=== PATIENT | male | born 1945 | race Hispanic/Latino ===

== ENCOUNTER 2016-12-15 17:13 | Inpatient (IN) | payer MEDICARE ==
[2016-12-15 18:08] LABS: Basophils % (Auto) 0.7 % (0.0-1.8); Eosinophils % (Auto) 6.8 % (0.0-4.3); Hematocrit 37.9 % (35.5-45.6); Hemoglobin 12.1 gm/dl (11.8-15.2); Mean Corpuscular HGB Conc 32 % (32-34); Mean Corpuscular Hemoglobin 28 pg (28-32); Mean Corpuscular Volume 87 fl (84-94); Platelet Count 160 K/mm3 (140-440); Red Blood Count 4.38 M/mm3 (3.65-5.03); Red Cell Distribution Width 16.2 % (13.2-15.2); White Blood Count 4.1 K/mm3 (4.5-11.0)
[2016-12-15 18:18] LABS: INR 1.51 (0.87-1.13)
[2016-12-15 18:19] LABS: Partial Thromboplastin Time 34.3 Sec. (24.2-36.6)
[2016-12-15 18:28] LABS: Anion Gap 20 mmol/L; BUN/Creatinine Ratio 12.22; Blood Urea Nitrogen 11 mg/dL (9-20); Calcium 8.6 mg/dL (8.4-10.2); Carbon Dioxide 21 mmol/L (22-30); Chloride 99.8 mmol/L (98-107); Glucose 99 mg/dL (75-100); Potassium 4.3 mmol/L (3.6-5.0); Sodium 136 mmol/L (137-145)
[2016-12-15] MEDS ORDERED: LASIX IV ONE (19:22)
--- NOTE | 2016-12-15 19:29 | Emergency Department Report ---
HPI - General Chief Complaint: Dyspnea/Respdistress Time Seen by Provider: 12/15/16 19:07 - HPI HPI: Room 2 The patient is a 71-year-old male presenting with a chief complaint of bilateral lower extremity edema. The patient states of course 4 months is that worsening bilateral lower extremity edema. The patient states he started his feet then progressed to pretibial and and then the entire leg bilaterally. Patient does admit to worsening dyspnea on exertion. The patient has a history of CHF and states he's been compliant with his Lasix 20 mg daily. The patient states over the past week she has noticed increased edema of his scrotum which now makes it difficult for him to ambulate Location: [see above] Duration: Progressive over 4 months Quality: Shortness of breath Severity: Moderate Modifying factors: Exertion worsens shortness of breath Context: [see above] Mode of transportation: [not driving] ED Past Medical Hx - Past Medical History Hx Hypertension: Yes Hx Congestive Heart Failure: Yes Hx GERD: Yes Hx Asthma: Yes - Surgical History Hx Appendectomy: Yes - Family History Family history: no significant - Social History Smoking Status: Never Smoker Substance Use Type: None - Medications Home Medications: Home Medications Medication Instructions Recorded Confirmed Last Taken Type AtorvaSTATin 10 mg PO QHS 04/23/15 12/15/16 04/28/15 History Lisinopril 10 mg PO DAILY 04/23/15 12/15/16 04/28/15 History Losartan 50 mg PO DAILY 04/23/15 12/15/16 04/29/15 History Xanax TAB 0.5 mg PO QHS 04/23/15 12/15/16 04/28/15 History Zoloft 100 mg PO DAILY 04/23/15 12/15/16 04/28/15 History Acyclovir [Zovirax Tab] 400 mg PO BID 12/15/16 12/15/16 Unknown History Furosemide [Lasix TAB] 20 mg PO QDAY PRN 12/15/16 12/15/16 Unknown History Lansoprazole [Prevacid] 30 mg PO QDAY 12/15/16 12/15/16 Unknown History ED Review of Systems ROS: Stated complaint: TESTICAL SWELLING Other details as noted in HPI Comment: All other systems reviewed and negative Constitutional: denies: chills, fever Eyes: denies: eye pain, eye discharge, vision change ENT: denies: ear pain, throat pain Respiratory: shortness of breath, SOB with exertion Cardiovascular: dyspnea on exertion. denies: chest pain, palpitations Endocrine: no symptoms reported Gastrointestinal: denies: abdominal pain, nausea, diarrhea Genitourinary: other (scrotal edema) Musculoskeletal: denies: back pain, joint swelling, arthralgia Skin: denies: rash, lesions Neurological: denies: headache, weakness, paresthesias Psychiatric: denies: anxiety, depression Hematological/Lymphatic: denies: easy bleeding, easy bruising Physical Exam - Physical Exam Vital Signs: Vital Signs 12/15/16 12/15/16 12/15/16 17:43 17:56 18:08 Temperature 98.3 F Pulse Rate 58 L 52 L Respiratory 22 16 14 Rate Blood Pressure 132/73 O2 Sat by Pulse 97 97 99 Oximetry 12/15/16 18:10 Temperature Pulse Rate 48 L Respiratory 13 Rate Blood Pressure 137/77 O2 Sat by Pulse 98 Oximetry Physical Exam: GENERAL: The patient is well-developed well-nourished male lying on stretcher not appear to be in acute distress. [] HEENT: Normocephalic. Atraumatic. Extraocular motions are intact. Patient has moist mucous membranes. NECK: Supple. No meningitic signs are noted. There is no adenopathy noted. CHEST/LUNGS: Clear to auscultation. There is no respiratory distress noted. HEART/CARDIOVASCULAR: Regular. There is no tachycardia. There is no gallop rub or murmur. ABDOMEN: Abdomen is soft, nontender. Patient has normal bowel sounds. There is no abdominal distention. SKIN: There is no rash. There is 2-3+ bilateral lower extremity pitting edema. There is large scrotal edema. Scrotum is approximately cantaloupe sized. There is no diaphoresis. NEURO: The patient is awake, alert, and oriented. The patient is cooperative. The patient has normal speech MUSCULOSKELETAL: There is no evidence of acute injury. ED Course Vital Signs 12/15/16 12/15/16 12/15/16 17:43 17:56 18:08 Temperature 98.3 F Pulse Rate 58 L 52 L Respiratory 22 16 14 Rate Blood Pressure 132/73 O2 Sat by Pulse 97 97 99 Oximetry 12/15/16 18:10 Temperature Pulse Rate 48 L Respiratory 13 Rate Blood Pressure 137/77 O2 Sat by Pulse 98 Oximetry ED Medical Decision Making - Lab Data Result diagrams: 12/15/16 17:54 12/15/16 17:54 Laboratory Tests 12/15/16 12/15/16 12/15/16 17:54 17:54 17:54 WBC 4.1 L RBC 4.38 Hgb 12.1 Hct 37.9 MCV 87 MCH 28 MCHC 32 RDW 16.2 H Plt Count 160 Lymph % (Auto) 22.2 [place] % (Auto) 7.8 H Eos % (Auto) 6.8 H Baso % (Auto) 0.7 Lymph # 0.9 L [place] # 0.3 Eos # 0.3 Baso # 0.0 Seg Neutrophils % 62.5 Seg Neutrophils # 2.6 PT 18.2 H INR 1.51 H APTT 34.3 Sodium 136 L Potassium 4.3 Chloride 99.8 Carbon Dioxide 21 L Anion Gap 20 BUN 11 Creatinine 0.9 Estimated GFR > 60 BUN/Creatinine Ratio 12.22 Glucose 99 Calcium 8.6 Troponin T < 0.010 NT-Pro-B Natriuret Pep 7830 H - EKG Data -: EKG Interpreted by Me Rate: bradycardia (46 bpm) - EKG Data When compared to previous EKG there are: previous EKG unavailable Interpretation: other (intrafibrillation a rate of 46 bpm. T-wave inversion in leads aVL. Biphasic T waves in leads V4, V6) - Radiology Data Radiology results: image reviewed (chest x-ray) interpreted by me: Chest x-ray-no focal infiltrates, no pneumothorax - Differential Diagnosis CHF exacerbation, anasarca Critical care attestation.: If time is entered above; I have spent that time in minutes in the direct care of this critically ill patient, excluding procedure time. ED Disposition Clinical Impression: CHF exacerbation, Peripheral edema, Scrotal edema Disposition: OP ADMITTED IP TO THIS HOSP Is pt being admited?: Yes Does the pt Need Aspirin: Yes Condition: Fair Referrals: PRIMARY CARE, [Primary Care Provider] - 3-5 Days Time of Disposition: 19:33 (hospitalist Dr. Jayla pantoja)
[2016-12-15] MEDS ORDERED: ASPIRIN PO ONE (19:33)
[2016-12-15] MEDS ORDERED: TYLENOL PO PRN (22:01)
[2016-12-15] MEDS ORDERED: ZOFRAN IV PRN (22:01)
[2016-12-15] MEDS ORDERED: MILK OF MAGNESIA PO PRN (22:01)
[2016-12-15] MEDS ORDERED: DULCOLAX PR PRN (22:01)
--- NOTE | 2016-12-15 22:05 | History and Physical Report ---
History of Present Illness Date of examination: 12/15/16 History of present illness: 71-year-old man with a history of CHF, GERD, asthma comes emergency room with edema for 3 months which has progressively gotten worse. The swelling is now up to his groin. He complains of shortness of breath, dyspnea on exertion , no PND or orthopnea Patient denies chest pain, palpitation, cough, abdominal pain, hematochezia, dysuria, frequency, focal weakness, dysarthria, fever chills, polydipsia polyuria, hot or cold intolerance, easy bruisability, or rash or bleeding from mucosal membrane, rhinorrhea, epistaxis, earache, tinnitus, blurry vision, eye discharge, anxiety, depression. Other review of systems negative PAST SURGICAL HISTORY: Appendectomy SOCIAL HISTORY: Denies alcohol, tobacco, drugs FAMILY HISTORY: Hypertension Medications and Allergies Allergies Allergy/AdvReac Type Severity Reaction Status Date / Time No Known Allergies Allergy Verified 04/23/15 15:10 Home Medications Medication Instructions Recorded Confirmed Last Taken Type ALPRAZolam [Xanax TAB] 0.5 mg PO QHS 04/23/15 12/15/16 04/28/15 History AtorvaSTATin [Lipitor] 10 mg PO QHS 04/23/15 12/15/16 04/28/15 History Lisinopril [Zestril TAB] 10 mg PO DAILY 04/23/15 12/15/16 04/28/15 History Losartan [Cozaar] 50 mg PO DAILY 04/23/15 12/15/16 04/29/15 History Sertraline [Zoloft] 100 mg PO DAILY 04/23/15 12/15/16 04/28/15 History Acyclovir [Zovirax Tab] 400 mg PO BID 12/15/16 12/15/16 Unknown History Furosemide [Lasix TAB] 20 mg PO QDAY PRN 12/15/16 12/15/16 Unknown History Lansoprazole [Prevacid] 30 mg PO QDAY 12/15/16 12/15/16 Unknown History Exam - Physical Exam Narrative exam: Gen. appearance: Patient lying in bed, no apparent distress HEENT: Normocephalic, atraumatic, pupils equally round and reactive to light, extraocular movement intact, and no sclericterus,. No JVD or thyromegaly or nodule,neck supple, no carotid bruit ,mucous membranes moist, no exudate or erythema Heart: S1, S2, regular rate and rhythm Lungs: Crackles bilaterally, breathing comfortable Abdomen: Positive bowel sounds, nontender, nondistended, no organomegaly Extremity: Anasarca, no cyanosis, clubbing Skin: No rash, nodules, warm, dry Neuro: Oriented 3, cranial nerves II-12 intact, speech is fluent, motor and sensory intact - Constitutional Vitals: Temp Pulse Resp BP Pulse Ox 98.3 F 48 L 13 137/77 98 12/15/16 17:43 12/15/16 18:10 12/15/16 18:10 12/15/16 18:10 12/15/16 18:10 Results - Labs CBC & Chem 7: 12/16/16 08:37 12/16/16 08:37 Labs: Abnormal lab results 12/15/16 12/15/16 12/15/16 Range/Units 17:54 17:54 17:54 WBC 4.1 L (4.5-11.0) K/mm3 RDW 16.2 H (13.2-15.2) % [place] % (Auto) 7.8 H (0.0-7.3) % Eos % (Auto) 6.8 H (0.0-4.3) % Lymph # 0.9 L (1.2-5.4) K/mm3 PT 18.2 H (12.2-14.9) Sec. INR 1.51 H (0.87-1.13) Sodium 136 L (137-145) mmol/L Carbon Dioxide 21 L (22-30) mmol/L NT-Pro-B Natriuret Pep 7830 H (0-900) pg/mL - Imaging and Cardiology EKG: image reviewed Chest x-ray: image reviewed Assessment and Plan CHF exacerbation, acute on chronic probably diastolic GERD Asthma Admit to medicine Diuresed with IV Lasix Monitor I's and O's, daily weights Check cardiac enzymes, echo, consult cardiology Start Beta nilson, TAMIR inhibitor, aspirin Start outpatient medications Start DVT prophylaxis
[2016-12-16] MEDS: LASIX IV SCH ×2 (08:09→17:59)
--- NOTE | 2016-12-16 09:58 | Progress Note ---
Assessment and Plan Assessment and plan: Acute CHF exacerbation. Await echocardiogram to determine systolic versus diastolic. Cardiology consultation pending. Continue CHF pathway. We will monitor I&O's, daily weights and check cardiac isoenzymes. Patient with elevated BNP of greater than 7000.. Continue Lasix, beta nilson and Zestril. Asthma. Stable GERD. Continue Protonix. History Interval history: 71-year-old man with a history of CHF, GERD, asthma comes emergency room with edema for 3 months which has progressively gotten worse. Hospitalist Physical - Constitutional Vitals: Temp Pulse Resp BP Pulse Ox 97.7 F 48 L 18 145/77 98 12/16/16 07:25 12/16/16 07:25 12/16/16 07:25 12/16/16 07:25 12/16/16 07:25 General appearance: Present: no acute distress, well-nourished - EENT Eyes: Present: PERRL, EOM intact ENT: hearing intact, clear oral mucosa, dentition normal - Neck Neck: Present: supple, normal ROM - Respiratory Respiratory effort: normal Respiratory: bilateral: diminished, rales - Cardiovascular Rhythm: regular Heart Sounds: Present: S1 & S2. Absent: gallop, rub - Extremities Extremities: no ischemia, Full ROM Extremity abnormal: edema (3+) - Abdominal General gastrointestinal: soft, non-tender, non-distended, normal bowel sounds - Integumentary Integumentary: Present: clear, warm, dry - Neurologic Neurologic: CNII-XII intact, moves all extremities Results - Labs CBC & Chem 7: 12/15/16 17:54 12/15/16 17:54 Labs: Laboratory Last Values WBC 4.1 K/mm3 (4.5-11.0) L 12/15/16 17:54 RBC 4.38 M/mm3 (3.65-5.03) 12/15/16 17:54 Hgb 12.1 gm/dl (11.8-15.2) 12/15/16 17:54 Hct 37.9 % (35.5-45.6) 12/15/16 17:54 MCV 87 fl (84-94) 12/15/16 17:54 MCH 28 pg (28-32) 12/15/16 17:54 MCHC 32 % (32-34) 12/15/16 17:54 RDW 16.2 % (13.2-15.2) H 12/15/16 17:54 Plt Count 160 K/mm3 (140-440) 12/15/16 17:54 Lymph % (Auto) 22.2 % (13.4-35.0) 12/15/16 17:54 [place] % (Auto) 7.8 % (0.0-7.3) H 12/15/16 17:54 Eos % (Auto) 6.8 % (0.0-4.3) H 12/15/16 17:54 Baso % (Auto) 0.7 % (0.0-1.8) 12/15/16 17:54 Lymph # 0.9 K/mm3 (1.2-5.4) L 12/15/16 17:54 [place] # 0.3 K/mm3 (0.0-0.8) 12/15/16 17:54 Eos # 0.3 K/mm3 (0.0-0.4) 12/15/16 17:54 Baso # 0.0 K/mm3 (0.0-0.1) 12/15/16 17:54 Seg Neutrophils % 62.5 % (40.0-70.0) 12/15/16 17:54 Seg Neutrophils # 2.6 K/mm3 (1.8-7.7) 12/15/16 17:54 PT 18.2 Sec. (12.2-14.9) H 12/15/16 17:54 INR 1.51 (0.87-1.13) H 12/15/16 17:54 APTT 34.3 Sec. (24.2-36.6) 12/15/16 17:54 Sodium 136 mmol/L (137-145) L 12/15/16 17:54 Potassium 4.3 mmol/L (3.6-5.0) 12/15/16 17:54 Chloride 99.8 mmol/L (98-107) 12/15/16 17:54 Carbon Dioxide 21 mmol/L (22-30) L 12/15/16 17:54 Anion Gap 20 mmol/L 12/15/16 17:54 BUN 11 mg/dL (9-20) 12/15/16 17:54 Creatinine 0.9 mg/dL (0.8-1.5) 12/15/16 17:54 Estimated GFR > 60 ml/min 12/15/16 17:54 BUN/Creatinine Ratio 12.22 % 12/15/16 17:54 Glucose 99 mg/dL (75-100) 12/15/16 17:54 Calcium 8.6 mg/dL (8.4-10.2) 12/15/16 17:54 Troponin T < 0.010 ng/mL (0.00-0.029) 12/15/16 17:54 NT-Pro-B Natriuret Pep 7830 pg/mL (0-900) H 12/15/16 17:54
[2016-12-16] MEDS ORDERED: NON-FORMULARY (Acyclovir [Zovirax Tab] 400 MG) PO SCH (10:00)
[2016-12-16] MEDS ORDERED: LOVENOX SUB-Q SCH (10:00)
[2016-12-16] MEDS ORDERED: NON-FORMULARY (Lansoprazole [Prevacid] 30 MG) PO SCH (10:00)
[2016-12-16] MEDS ORDERED: ZESTRIL PO SCH (10:00)
--- NOTE | 2016-12-16 10:00 | XRay Report ---
PORTABLE CHEST INDICATION: Shortness of breath. COMPARISON: None similar at this institution. FINDINGS: Portable, frontal chest radiographs, 2 images, suggest top normal heart size. Aortic knob calcifications. Slight mid to lower lung atelectasis, left more than right. Intact bones. EKG leads. CONCLUSION: No significant acute chest process, as described. Thank you for the opportunity to participate in this patient's care.
[2016-12-16] MEDS: BABY ASPIRIN PO SCH (10:08)
[2016-12-16] MEDS: ZESTRIL PO SCH (10:08)
[2016-12-16] MEDS: LOPRESSOR PO SCH ×2 (10:09→22:33)
[2016-12-16] MEDS: ZOLOFT PO SCH (10:09)
[2016-12-16] MEDS: PROTONIX PO SCH (10:09)
[2016-12-16] MEDS: LOVENOX SUB-Q SCH (10:10)
[2016-12-16] MEDS: ZOVIRAX PO SCH ×2 (10:23→22:33)
[2016-12-16 10:31] LABS: Basophils % (Auto) 0.6 % (0.0-1.8); Eosinophils % (Auto) 7.6 % (0.0-4.3); Hematocrit 38.1 % (35.5-45.6); Hemoglobin 12.2 gm/dl (11.8-15.2); Mean Corpuscular HGB Conc 32 % (32-34); Mean Corpuscular Hemoglobin 28 pg (28-32); Mean Corpuscular Volume 88 fl (84-94); Platelet Count 163 K/mm3 (140-440); Red Blood Count 4.34 M/mm3 (3.65-5.03); Red Cell Distribution Width 16.3 % (13.2-15.2); White Blood Count 4.5 K/mm3 (4.5-11.0)
[2016-12-16 10:59] LABS: Anion Gap 18 mmol/L; BUN/Creatinine Ratio 11.11; Blood Urea Nitrogen 10 mg/dL (9-20); Calcium 8.9 mg/dL (8.4-10.2); Carbon Dioxide 26 mmol/L (22-30); Chloride 99.5 mmol/L (98-107); Glucose 91 mg/dL (75-100); Potassium 3.7 mmol/L (3.6-5.0); Sodium 140 mmol/L (137-145)
--- NOTE | 2016-12-16 11:28 | Admit Criteria Form ---
Admission Criteria Documentation: HEART FAILURE: COMMON COMPLICATIONS Clinical Indications for Inpatient Care (Place 'X' for any and all applicable criteria): Ongoing inpatient care may be indicated for heart failure with ANY ONE of the following (1)(2)(3)(4)(5): [ ]I. Ongoing need for care for primary condition requiring frequent therapy adjustments because of changes in cardiac function (eg, drug dosage changes for drugs that are renally metabolized) [ ]II. New-onset heart failure [ ]III. Heart failure with decreased urine output not responsive to attempts to optimize volume status [ ]IV. Acute cardiac ischemia causing or associated with failure [X]V. Complications of heart failure, including ANY ONE of the following: [ ]a) Pericardial effusion [ ]b) Symptomatic pleural effusion [ ]c) O2 saturation <90% or PO2 < 60 mm Hg (8.0 kPa) on room air or require baseline supplemental O2 [ ]d) Tachypnea [ ]e) Dyspnea [ ]f) Syncope [ ]g) Change in mental status [ ]h) Acute renal insufficiency that is severe (reduction of more than 50% in estimated glomerular filtration rate from baseline) or progressive reduction of more than 25% in estimated glomerular filtration rate from baseline, with creatinine continuing to rise) [ ]i) Hemodynamic instability [X]j) Anasarca [ ]k) Clinically significant metabolic abnormalities due to heart failure (eg, new-onset metabolic acidosis) Extended stay beyond goal length of stay for primary condition may be needed until ALL of the following are present(1)(3): [ ]a) Stable and effective diuretic regimen established (or patient on stable dialysis regimen if in chronic renal failure) [ ]b) Breathing comfortably at rest [ ]c) Saturation of arterial oxygen greater than 90% or at acceptable baseline [ ]d) Pulmonary edema absent or improved [ ]e) Hemodynamic stability [ ]f) Volume status acceptable on oral medication [ ]g) Peripheral or sacral edema absent or improved [ ]h) Renal function stable and manageable at a lower level of care [ ]i) Complications (eg, pleural effusion) resolved or manageable at a lower level of care [ ]j) Patient or caregiver has received written discharge instructions or educational material addressing activity level, diet, discharge medications, follow-up appointment, weight monitoring, and what to do if symptoms worsen The original [facility] content created by [employer] has been revised. The portions of the content which have been revised are identified through the use of italic text or in bold, and [facility] has neither reviewed nor approved the modified material.All other unmodified content is copyright [facility]. Please see references footnoted in the original [facility] edition 2016 Admission Criteria Met: Yes
--- NOTE | 2016-12-16 12:03 | Event Note ---
Date: 12/16/16 Cardio note dictated CHF A fib HTN Edema will follow Thank you Dr Hussein
[2016-12-16] MEDS: MORPHINE IV PRN (16:12)
[2016-12-16] MEDS: XANAX PO SCH (22:33)
--- NOTE | 2016-12-17 02:26 | Consultation ---
HISTORY OF PRESENT ILLNESS: The patient is a 71-year-old gentleman who comes in with history of worsening edema within the last 3 months that has progressively gotten worse and he came to the Emergency Room. The patient is diagnosed to have congestive heart failure and has been treated with diuretics. The patient had some improvement in the dyspnea as well as the edema. The patient had no chest pain. Denies prior myocardial infarction, but he did have a previous cerebrovascular accident. The patient is known to have hypertension, but no history of diabetes or hyperlipidemia. REVIEW OF SYSTEMS: HEENT: No symptoms. ENDOCRINE: No history of diabetes, but 9 to 10 years ago, he was diagnosed to have type 2 diabetes. After weight loss, this has resolved. GENITOURINARY: No symptoms currently. CENTRAL NERVOUS SYSTEM: No symptoms. PERSONAL HISTORY: Nonsmoker, nonalcoholic. PAST MEDICAL HISTORY: The patient is known to have hypertension and possible borderline diabetes. PHYSICAL EXAMINATION: GENERAL: Elderly gentleman in no acute distress, appears to be older than stated age. HEENT: Unremarkable. NECK: Supple. No thyromegaly. Both carotids are palpable and equal. Neck veins are flat. CHEST: Symmetrical. LUNGS: Clear. CARDIOVASCULAR: S1 and S2 are heard well. Rhythm is noted to be irregular. ABDOMEN: Soft and nontender. EXTREMITIES: Bilateral edema is present up to the thighs. IMAGING DATA: EKG, atrial fibrillation with satisfactory ventricular response. Chest x-ray is stable. LABORATORY DATA: Hemoglobin 12.2, hematocrit 38.1. INR 1.51. Sodium 140, potassium 3.7, BUN 10, creatinine 0.9, troponin negative. BNP 7830. IMPRESSION: 1. Congestive heart failure. 2. Longstanding history of hypertension. 3. History of type 2 diabetes. 4. History of cerebrovascular accident in . 5. History of lymphoma seen in the past by Dr. Chris. 6. Atrial fibrillation. The patient is seen for cardiac evaluation. So far, he has responded to the diuretics and he is doing better. PLAN: At this time, is to continue current management. We will review the echo once it is done. The patient will be followed closely. Multiple family members are present in the room and discussed with them about the plans. Thank you, Dr. Garcia, for allowing me to participate in the care of this gentleman. JOB# [id number] ANNE/NTS
[2016-12-17] MEDS: LASIX IV SCH ×2 (06:22→18:41)
--- NOTE | 2016-12-17 11:03 | Progress Note ---
Assessment and Plan Assessment and plan: Acute systolic CHF exacerbation. Echocardiogram appears to have biventricular failure. Await echocardiogram for breathing. Cardiology following. Continue CHF pathway. We will monitor I&O's, daily weights and check cardiac isoenzymes. Patient with elevated BNP of greater than 7000 on admission. Continue Lasix, beta nilson and Zestril. Asthma. Stable GERD. Continue Protonix. Hypertension. Continue antihypertensives medications. Atrial fibrillation. Rate controlled. History Interval history: 71-year-old man with a history of CHF, GERD, asthma comes emergency room with edema for 3 months which has progressively gotten worse. Hospitalist Physical - Constitutional Vitals: Temp Pulse Resp BP Pulse Ox 97.9 F 47 L 18 116/75 100 12/17/16 09:46 12/17/16 09:46 12/17/16 09:46 12/17/16 09:46 12/17/16 09:46 General appearance: Present: no acute distress, well-nourished - EENT Eyes: Present: PERRL, EOM intact ENT: hearing intact, clear oral mucosa, dentition normal - Neck Neck: Present: supple, normal ROM - Respiratory Respiratory effort: normal Respiratory: bilateral: CTA - Cardiovascular Rhythm: regular Heart Sounds: Present: S1 & S2. Absent: gallop, rub - Extremities Extremities: no ischemia, No edema, Full ROM - Abdominal General gastrointestinal: soft, non-tender, non-distended, normal bowel sounds - Integumentary Integumentary: Present: clear, warm, dry - Neurologic Neurologic: CNII-XII intact, moves all extremities Results - Labs CBC & Chem 7: 12/16/16 08:37 12/16/16 08:37 Labs: Laboratory Last Values WBC 4.5 K/mm3 (4.5-11.0) 12/16/16 08:37 RBC 4.34 M/mm3 (3.65-5.03) 12/16/16 08:37 Hgb 12.2 gm/dl (11.8-15.2) 12/16/16 08:37 Hct 38.1 % (35.5-45.6) 12/16/16 08:37 MCV 88 fl (84-94) 12/16/16 08:37 MCH 28 pg (28-32) 12/16/16 08:37 MCHC 32 % (32-34) 12/16/16 08:37 RDW 16.3 % (13.2-15.2) H 12/16/16 08:37 Plt Count 163 K/mm3 (140-440) 12/16/16 08:37 Lymph % (Auto) 31.9 % (13.4-35.0) 12/16/16 08:37 [place] % (Auto) 8.4 % (0.0-7.3) H 12/16/16 08:37 Eos % (Auto) 7.6 % (0.0-4.3) H 12/16/16 08:37 Baso % (Auto) 0.6 % (0.0-1.8) 12/16/16 08:37 Lymph # 1.4 K/mm3 (1.2-5.4) 12/16/16 08:37 [place] # 0.4 K/mm3 (0.0-0.8) 12/16/16 08:37 Eos # 0.3 K/mm3 (0.0-0.4) 12/16/16 08:37 Baso # 0.0 K/mm3 (0.0-0.1) 12/16/16 08:37 Seg Neutrophils % 51.5 % (40.0-70.0) 12/16/16 08:37 Seg Neutrophils # 2.3 K/mm3 (1.8-7.7) 12/16/16 08:37 PT 18.2 Sec. (12.2-14.9) H 12/15/16 17:54 INR 1.51 (0.87-1.13) H 12/15/16 17:54 APTT 34.3 Sec. (24.2-36.6) 12/15/16 17:54 Sodium 140 mmol/L (137-145) 12/16/16 08:37 Potassium 3.7 mmol/L (3.6-5.0) 12/16/16 08:37 Chloride 99.5 mmol/L (98-107) 12/16/16 08:37 Carbon Dioxide 26 mmol/L (22-30) 12/16/16 08:37 Anion Gap 18 mmol/L 12/16/16 08:37 BUN 10 mg/dL (9-20) 12/16/16 08:37 Creatinine 0.9 mg/dL (0.8-1.5) 12/16/16 08:37 Estimated GFR > 60 ml/min 12/16/16 08:37 BUN/Creatinine Ratio 11.11 % 12/16/16 08:37 Glucose 91 mg/dL (75-100) 12/16/16 08:37 POC Glucose 142 (70-105) H 12/16/16 21:36 Calcium 8.9 mg/dL (8.4-10.2) 12/16/16 08:37 Troponin T < 0.010 ng/mL (0.00-0.029) 12/15/16 17:54 NT-Pro-B Natriuret Pep 7830 pg/mL (0-900) H 12/15/16 17:54
[2016-12-17] MEDS: LOPRESSOR PO SCH (11:32)
[2016-12-17] MEDS: ZESTRIL PO SCH ×2 (11:32→11:44)
--- NOTE | 2016-12-17 11:33 | Progress Note ---
Assessment and Plan Assessment: Acute bi-ventricular heart failure CMP Chronic atrial fibrillation - currently with SVR. HTN DM h/o CVA h/o lymphoma Plan: Echo reviewed - mild LVH, EF 35-40%, RV mildly dilated, RA moderately dilated, mild MR, mild to moderate TR, RVSP 40mmHg, LA mildly dilated. Continue diuresis with IV lasix. Consider conversion to PO in AM. Hold BB in setting of AFib with SVR. Indications, potential risks, and benefits of anticoagulation in regards to atrial fibrillation reviewed with pt and pt's family. Pt was prescribed Pradaxa in the past but took himself off of it because it was too expensive with his insurance at the time. However, his insurance has changed and he and his family feel that Pradaxa will now be affordable for them. Will resume Pradaxa, 150mg BID. Plan for ischemic evaluation for further evaluation of CMP etiology once medically stabilized - can be done as OP. The patient has been seen in conjunction with Dr. LOUIS Hussein who agrees with the assessment and plan of care. Subjective Date of service: 12/17/16 Principal diagnosis: HF Interval history: Pt resting in bed, states BLE edema and SOB are improving. In AFib on tele with SVR, HR 30s - 40s, BPs stable, pt asymptomatic. Family at bedside. Objective Last Vital Signs Temp 97.9 F 12/17/16 09:46 Pulse 47 L 12/17/16 09:46 Resp 18 12/17/16 09:46 BP 116/75 12/17/16 09:46 Pulse Ox 100 12/17/16 09:46 - Physical Examination General: No Apparent Distress HEENT: Positive: PERRL, Normocephaly, Mucus Membranes Moist Neck: Positive: neck supple, trachea midline Cardiac: Positive: irregularly irregular, S1/S2 Lungs: Positive: clear to auscultation, Decreased Breath Sounds Neuro: Positive: Grossly Intact, Cranial Nerve 2-12 Intact Abdomen: Positive: Unremarkable, Soft, Active Bowel Sounds. Negative: Tender Skin: Positive: Clear. Negative: Rash, Wound Musculoskeletal: No Pain, Normal Range of Motion Extremities: Present: edema, +2 Edema (BLE ) - Imaging and Cardiology EKG: report reviewed, image reviewed Echo: report reviewed - Telemetry EKG Rhythm: Atrial Fibrillation
[2016-12-17] MEDS: ZOLOFT PO SCH (11:41)
[2016-12-17] MEDS: BABY ASPIRIN PO SCH (11:42)
[2016-12-17] MEDS: ZOVIRAX PO SCH ×2 (11:42→22:46)
[2016-12-17] MEDS: PROTONIX PO SCH (11:42)
[2016-12-17] MEDS: LOVENOX SUB-Q SCH (11:43)
[2016-12-17] MEDS: PRADAXA PO SCH ×2 (15:37→22:46)
[2016-12-17] MEDS: MORPHINE IV PRN (18:52)
[2016-12-17] MEDS: XANAX PO SCH (22:46)
[2016-12-18] MEDS: LASIX IV SCH (06:39)
[2016-12-18 07:52] LABS: Basophils % (Auto) 0.9 % (0.0-1.8); Eosinophils % (Auto) 9.9 % (0.0-4.3); Hematocrit 38.7 % (35.5-45.6); Hemoglobin 12.6 gm/dl (11.8-15.2); Mean Corpuscular HGB Conc 33 % (32-34); Mean Corpuscular Hemoglobin 28 pg (28-32); Mean Corpuscular Volume 87 fl (84-94); Platelet Count 176 K/mm3 (140-440); Red Blood Count 4.47 M/mm3 (3.65-5.03); Red Cell Distribution Width 15.7 % (13.2-15.2); White Blood Count 4.1 K/mm3 (4.5-11.0)
[2016-12-18 08:04] LABS: Carbon Dioxide 34 mmol/L (22-30); Chloride 95.9 mmol/L (98-107); Glucose 108 mg/dL (75-100); Potassium 3.9 mmol/L (3.6-5.0); Sodium 140 mmol/L (137-145)
[2016-12-18 08:08] LABS: Anion Gap 14 mmol/L
[2016-12-18 08:48] LABS: Blood Urea Nitrogen 13 mg/dL (9-20); Calcium 8.7 mg/dL (8.4-10.2)
--- NOTE | 2016-12-18 09:46 | Progress Note ---
Assessment and Plan Assessment: Acute bi-ventricular heart failure - nearing/at euvolemia CMP Chronic atrial fibrillation with SVR - pt asympotomatic, BPs stable; on Pradaxa. HTN DM h/o CVA h/o lymphoma Plan: Convert IV lasix to PO, 40mg daily. Cont to BB in setting of AFib with SVR. Obtain thyroid panel. Encourage ambulation today and cont telemetry with possible d/c home this afternoon if HR is maintained in 40s - 50s. Consider EP consultation if HR continues to drop below 40bpm. Plan for ischemic evaluation for further evaluation of CMP etiology once medically stabilized - can be done as OP. Follow up in our [place] office with Caitie Green NP, on 12/23/2016 @ 1:30PM. The patient has been seen in conjunction with Dr. LOUIS Hussein who agrees with the assessment and plan of care. Subjective Date of service: 12/18/16 Principal diagnosis: HF Interval history: Pt resting in bed, BLE nearly resolved. In AFib on tele with SVR, HR 30s - 50s, lowest HR overnight was 39bpm; BPs stable, pt asymptomatic. Family at bedside. Objective Last Vital Signs Temp 98.1 F 12/18/16 08:40 Pulse 42 L 12/18/16 08:40 Resp 18 12/18/16 08:40 BP 125/68 12/18/16 08:40 Pulse Ox 96 12/18/16 08:40 - Physical Examination General: No Apparent Distress HEENT: Positive: PERRL, Normocephaly, Mucus Membranes Moist Neck: Positive: neck supple, trachea midline Cardiac: Positive: irregularly irregular, S1/S2 Lungs: Positive: clear to auscultation Neuro: Positive: Grossly Intact, Cranial Nerve 2-12 Intact Abdomen: Positive: Unremarkable, Soft, Active Bowel Sounds. Negative: Tender Skin: Positive: Clear. Negative: Rash, Wound Musculoskeletal: No Pain, Normal Range of Motion Extremities: Present: edema, +2 Edema (BLE ) - Labs and Meds CBC 12/18/16 Range/Units 06:56 WBC 4.1 L (4.5-11.0) K/mm3 RBC 4.47 (3.65-5.03) M/mm3 Hgb 12.6 (11.8-15.2) gm/dl Hct 38.7 (35.5-45.6) % Plt Count 176 (140-440) K/mm3 Lymph # 1.3 (1.2-5.4) K/mm3 [place] # 0.3 (0.0-0.8) K/mm3 Eos # 0.4 (0.0-0.4) K/mm3 Baso # 0.0 (0.0-0.1) K/mm3 Comprehensive Metabolic Panel 12/18/16 Range/Units 06:56 Sodium 140 (137-145) mmol/L Potassium 3.9 (3.6-5.0) mmol/L Chloride 95.9 L (98-107) mmol/L Carbon Dioxide 34 H D (22-30) mmol/L BUN 13 (9-20) mg/dL Creatinine 1.0 (0.8-1.5) mg/dL Glucose 108 H (75-100) mg/dL Calcium 8.7 (8.4-10.2) mg/dL - Imaging and Cardiology EKG: report reviewed, image reviewed Echo: report reviewed
[2016-12-18] MEDS: PRADAXA PO SCH ×2 (10:21→21:45)
[2016-12-18] MEDS: ZESTRIL PO SCH (10:22)
[2016-12-18] MEDS: ZOLOFT PO SCH (10:22)
[2016-12-18] MEDS: BABY ASPIRIN PO SCH (10:22)
[2016-12-18] MEDS: ZOVIRAX PO SCH ×2 (10:22→21:44)
[2016-12-18] MEDS: PROTONIX PO SCH (10:23)
--- NOTE | 2016-12-18 14:35 | Progress Note ---
Subjective Date of service: 12/18/16 Principal diagnosis: HF Interval history: Assessment and plan: Acute bi-ventricular heart failure - nearing/at euvolemia Cardiology note reviewed Patient complains of shortness of breath with minimal exertion, appears to be chronic His heart rate is in the low 40s I would requested physical therapy evaluation for his deconditioning Most likely will try to discharge the patient tomorrow his heart rate does not drop below 40 CMP: Echo results reviewed Chronic atrial fibrillation with SVR - pt asympotomatic, BPs stable; on Pradaxa HTN: Fair GERD: Continue PPI Chronic cough: Patient apparently has been having chronic cough for a long time I have reviewed his home medications. He has bottles both for lisinopril 10 mg and losartan 50 mg and apparently is taking both of them Discussed with him the probable cause of cough secondary to TAMIR inhibitor. He voiced understanding and we'll discontinue it Bradycardia: Cardiology note reviewed. He is asymptomatic. Outpatient cardiology follow-up with EP Patient is alert and oriented He says he has not been taking medications for almost 2 months as he was unable to afford the co-pay of about $200 every month He has chronic shortness of breath on mild exertion but denies any shortness of breath at rest. Denies any paroxysmal nocturnal dyspnea. Overall he feels better. Possible discharge tomorrow Objective - Constitutional Vitals: Vital Signs - 12hr 12/18/16 12/18/16 12/18/16 04:59 08:40 12:35 Temperature 97.6 F 98.1 F 98.3 F Pulse Rate [ 42 L Apical] Pulse Rate [ 42 L 44 L Left Radial] Respiratory 18 18 18 Rate Blood Pressure 121/74 125/68 128/74 [Left Arm] O2 Sat by Pulse 93 96 96 Oximetry - Labs CBC & Chem 7: 12/18/16 06:56 12/18/16 06:56 Labs: Abnormal lab results 12/18/16 12/18/16 12/18/16 Range/Units 06:56 06:56 10:44 WBC 4.1 L (4.5-11.0) K/mm3 RDW 15.7 H (13.2-15.2) % [place] % (Auto) 7.8 H (0.0-7.3) % Eos % (Auto) 9.9 H (0.0-4.3) % Chloride 95.9 L (98-107) mmol/L Carbon Dioxide 34 H D (22-30) mmol/L Glucose 108 H (75-100) mg/dL TSH (0.270-4.200) mlU/mL Free T4 0.74 L (0.76-1.46) ng/dL 12/18/16 Range/Units 10:44 WBC (4.5-11.0) K/mm3 RDW (13.2-15.2) % [place] % (Auto) (0.0-7.3) % Eos % (Auto) (0.0-4.3) % Chloride (98-107) mmol/L Carbon Dioxide (22-30) mmol/L Glucose (75-100) mg/dL TSH 4.630 H (0.270-4.200) mlU/mL Free T4 (0.76-1.46) ng/dL
--- NOTE | 2016-12-18 16:28 | Event Note ---
Date: 12/18/16 Patient remains in atrial fibrillation with HR in the 40s, patient hemodynamically stable and asymptomatic. Pt may discharge home from cardiology standpoint. Consider for EP consultation as KARMEN. Macy ASIF NP / DR. LOUIS BERNARDO
[2016-12-18] MEDS: XANAX PO SCH (21:45)
[2016-12-19 06:13] LABS: Basophils % (Auto) 0.8 % (0.0-1.8); Eosinophils % (Auto) 11.7 % (0.0-4.3); Hematocrit 40.2 % (35.5-45.6); Hemoglobin 12.9 gm/dl (11.8-15.2); Mean Corpuscular HGB Conc 32 % (32-34); Mean Corpuscular Hemoglobin 28 pg (28-32); Mean Corpuscular Volume 87 fl (84-94); Platelet Count 174 K/mm3 (140-440); Red Blood Count 4.61 M/mm3 (3.65-5.03); Red Cell Distribution Width 15.9 % (13.2-15.2); White Blood Count 4.1 K/mm3 (4.5-11.0)
[2016-12-19 06:51] LABS: Blood Urea Nitrogen 14 mg/dL (9-20); Calcium 8.2 mg/dL (8.4-10.2); Carbon Dioxide 25 mmol/L (22-30); Chloride 95.5 mmol/L (98-107); Glucose 117 mg/dL (75-100); Potassium 3.8 mmol/L (3.6-5.0); Sodium 139 mmol/L (137-145)
[2016-12-19 06:54] LABS: Anion Gap 22 mmol/L
[2016-12-19] MEDS ORDERED: LASIX PO SCH (10:00)
[2016-12-19] MEDS ORDERED: COZAAR PO SCH (10:00)
[2016-12-19] MEDS: BABY ASPIRIN PO SCH (12:10)
[2016-12-19 12:11] VITALS: BP 127/86
[2016-12-19] MEDS: PROTONIX PO SCH (12:11)
[2016-12-19] MEDS: ZOLOFT PO SCH (12:11)
[2016-12-19] MEDS: PRADAXA PO SCH (12:11)
[2016-12-19] MEDS: ZOVIRAX PO SCH (12:15)
--- NOTE | 2016-12-19 13:09 | Discharge Summary ---
Providers - Providers Date of Admission: 12/15/16 22:01 Date of discharge: 12/19/16 Attending physician: AMILCAR HENDRICKS 12/18/16 14:24 Physical Therapy Evaluation and Treat [CONS] Routine Comment: Reason For Exam: weakness and deconditioning Primary care physician: DEDRA DENG Hospitalization Reason for admission: LE edema Condition: Fair Hospital course: 71-year-old man with a history of CHF, GERD and asthma who presented to the emergency room with complaints of progressively worsening lower extremity edema. Patient was seen by cardiology in consultation and underwent echocardiogram which revealed mild LVH, EF 35-40%, RV mildly dilated, RA moderately dilated, mild MR, mild to moderate TR, RVSP 40mmHg, LA mildly dilated. Patient was treated with IV Lasix and converted to by mouth medications. The patient's symptoms resolved. Indications, potential risks, and benefits of anticoagulation in regards to atrial fibrillation reviewed with pt and pt's family. Pt was prescribed Pradaxa in the past but took himself off of it because it was too expensive with his insurance at the time. However, his insurance has changed and he and his family feel that Pradaxa will now be affordable for them. Pradaxa was resumed. Cardiology felt that an ischemic evaluation to determine cardiomyopathy etiology will be done as an outpatient. Patient is felt to have received maximal hospital benefit. Patient will be discharged home. Follow-up with PCP and home health lvn as outpatient. Dedicated discharge time 32 minutes. Disposition: DISCHARGED TO HOME OR SELFCARE Time spent for discharge: 32 - Discharge Diagnoses (1) Afib Status: Acute Qualifiers: Atrial fibrillation type: A (2) CHF exacerbation Status: Acute Qualifiers: Congestive heart failure type: C (3) Peripheral edema Status: Acute (4) Scrotal edema Status: Acute Core Measure Documentation - Palliative Care Palliative Care/ Comfort Measures: Not Applicable - Core Measures Any of the following diagnoses?: none Exam - Constitutional Vitals: Temp Pulse Resp BP Pulse Ox 97.4 F L 45 L 18 127/86 96 12/19/16 07:50 12/19/16 12:09 12/19/16 07:50 12/19/16 12:09 12/19/16 07:50 General appearance: Present: no acute distress, well-nourished - EENT Eyes: Present: PERRL ENT: hearing intact, clear oral mucosa - Neck Neck: Present: supple, normal ROM - Respiratory Respiratory effort: normal Respiratory: bilateral: diminished - Cardiovascular Heart Sounds: Present: S1 & S2. Absent: rub, click - Extremities Extremities: pulses symmetrical, No edema Peripheral Pulses: within normal limits - Abdominal General gastrointestinal: Present: soft, non-tender, non-distended, normal bowel sounds Male genitourinary: Present: normal - Integumentary Integumentary: Present: clear, warm, dry - Musculoskeletal Musculoskeletal: gait normal, strength equal bilaterally - Psychiatric Psychiatric: appropriate mood/affect, intact judgment & insight - Neurologic Neurologic: CNII-XII intact, moves all extremities Plan Activity: no restrictions Weight Bearing Status: Full Weight Bearing Diet: low fat, low cholesterol, low salt, diabetic Follow up with: PRIMARY CARE, [Referring] - 3-5 Days [employer] [Advanced Practice Nurse] - 7 Days Prescriptions: AtorvaSTATin [Lipitor] 10 mg PO QHS #30 tablet Dabigatran [Pradaxa] 150 mg PO BID #60 capsule Furosemide [Lasix TAB] 40 mg PO QDAY #30 tablet Lansoprazole [Prevacid] 30 mg PO QDAY #30 tab.rap. Losartan [Cozaar] 50 mg PO QDAY #30 tablet
== END 2016-12-19 15:30 | disposition home or self-care (01) | DRG 293 ==
LOC: ED 17:13 → 4A 22:01
PROVIDERS: ADMIT Internal Medicine; ATTEND Hospitalist
DX: I11.0 Hypertensive heart disease with heart failure (principal); K21.9 Gastro-esophageal reflux disease without esophagitis; N50.89 Other specified disorders of the male genital organs; E11.9 Type 2 diabetes mellitus without complications; I50.23 Acute on chronic systolic (congestive) heart failure; I48.2 Chronic atrial fibrillation; I42.9 Cardiomyopathy, unspecified; Z82.49 Family history of ischemic heart disease and other diseases of the circulatory system; Z86.73 Personal history of transient ischemic attack (TIA), and cerebral infarction without residual deficits
CPT/HCPCS: 36415; 71010; 80048; 82962; 83880; 84439; 84443; 84484; 85025; 85610; 85730; 93306; 96374; A9270-GY; J1650; J1940; J2270

== ENCOUNTER 2017-07-15 14:08 | Inpatient (IN) | payer MEDICARE ==
[2017-07-15] MEDS ORDERED: LASIX IV ONE (15:12)
--- NOTE | 2017-07-15 15:18 | Emergency Department Report ---
ED Shortness of Breath HPI - General Chief Complaint: Dyspnea/Respdistress Stated Complaint: LEGS SWELLING Time Seen by Provider: 07/15/17 14:49 Source: patient Mode of arrival: Ambulatory Limitations: No Limitations - History of Present Illness Initial Comments: Patient is 72 years old male history of congestive heart failure with ejection fraction 35%. Presented to the ER today with a chief complaint of shortness of breath and lower extremity swelling for the last few days. Patient stated that he is to progress very frequently, and now he cannot walk a few distance before he has to sit down. Patient denied any chest pain, no nausea no vomiting. No fever. MD Complaint: shortness of breath Severity: moderate Known History Of: congestive heart failure - Related Data Home Medications Medication Instructions Recorded Confirmed Last Taken ALPRAZolam [Xanax TAB] 0.5 mg PO QHS 04/23/15 12/15/16 04/28/15 Sertraline [Zoloft] 100 mg PO DAILY 04/23/15 12/15/16 04/28/15 Acyclovir [Zovirax Tab] 400 mg PO BID 12/15/16 12/15/16 Unknown Previous Rx's Medication Instructions Recorded Last Taken Type Aspirin [Aspirin BABY CHEW TAB] 81 mg PO QDAY tab.chew 12/19/16 Unknown Rx AtorvaSTATin [Lipitor] 10 mg PO QHS #30 tablet 12/19/16 Unknown Rx Dabigatran [Pradaxa] 150 mg PO BID #60 capsule 12/19/16 Unknown Rx Furosemide [Lasix TAB] 40 mg PO QDAY #30 tablet 12/19/16 Unknown Rx Lansoprazole [Prevacid] 30 mg PO QDAY #30 tab. 12/19/16 Unknown Rx Losartan [Cozaar] 50 mg PO QDAY #30 tablet 12/19/16 Unknown Rx Allergies Allergy/AdvReac Type Severity Reaction Status Date / Time No Known Allergies Allergy Verified 04/23/15 15:10 ED Review of Systems ROS: Stated complaint: LEGS SWELLING Other details as noted in HPI Comment: All other systems reviewed and negative Constitutional: denies: chills, fever Respiratory: shortness of breath, SOB with exertion, SOB at rest. denies: cough , orthopnea, wheezing Cardiovascular: denies: chest pain, palpitations Gastrointestinal: denies: abdominal pain, nausea, vomiting, diarrhea, hematemesis, melena, hematochezia Neurological: denies: headache, weakness, numbness, paresthesias ED Past Medical Hx - Past Medical History Hx Hypertension: Yes Hx Congestive Heart Failure: Yes Hx Diabetes: No Hx GERD: Yes Hx Asthma: Yes Hx COPD: No Hx HIV: No - Surgical History Hx Appendectomy: Yes - Social History Smoking Status: Former Smoker Substance Use Type: None - Medications Home Medications: Home Medications Medication Instructions Recorded Confirmed Last Taken Type ALPRAZolam [Xanax TAB] 0.5 mg PO QHS 04/23/15 12/15/16 04/28/15 History Sertraline [Zoloft] 100 mg PO DAILY 04/23/15 12/15/16 04/28/15 History Acyclovir [Zovirax Tab] 400 mg PO BID 12/15/16 12/15/16 Unknown History Aspirin [Aspirin BABY CHEW TAB] 81 mg PO QDAY tab.chew 12/19/16 Unknown Rx AtorvaSTATin [Lipitor] 10 mg PO QHS #30 tablet 12/19/16 Unknown Rx Dabigatran [Pradaxa] 150 mg PO BID #60 capsule 12/19/16 Unknown Rx Furosemide [Lasix TAB] 40 mg PO QDAY #30 tablet 12/19/16 Unknown Rx Lansoprazole [Prevacid] 30 mg PO QDAY #30 tab.rap.dr 12/19/16 Unknown Rx Losartan [Cozaar] 50 mg PO QDAY #30 tablet 12/19/16 Unknown Rx ED Physical Exam - General Limitations: No Limitations General appearance: alert, in distress (patient slightly tachypneic) - Head Head exam: Present: atraumatic, normocephalic, normal inspection - Eye Eye exam: Present: normal appearance, PERRL - ENT ENT exam: Present: normal exam, mucous membranes moist - Neck Neck exam: Present: normal inspection, full ROM. Absent: meningismus, lymphadenopathy, thyromegaly - Respiratory Respiratory exam: Present: rales, decreased breath sounds. Absent: wheezes, rhonchi - Cardiovascular Cardiovascular Exam: Present: regular rate, normal rhythm, normal heart sounds - GI/Abdominal GI/Abdominal exam: Present: soft, normal bowel sounds. Absent: distended, tenderness, guarding, rebound, rigid, organomegaly, mass, bruit, pulsatile mass , hernia - Extremities Exam Extremities exam: Present: pedal edema (4+). Absent: calf tenderness - Back Exam Back exam: Present: normal inspection. Absent: tenderness, CVA tenderness (R), CVA tenderness (L), muscle spasm, paraspinal tenderness, vertebral tenderness - Neurological Exam Neurological exam: Present: alert, oriented X3, CN II-XII intact, normal gait. Absent: motor sensory deficit - Skin Skin exam: Present: warm, intact, normal color. Absent: cyanosis ED Course Vital Signs 07/15/17 07/15/17 14:15 17:33 Temperature 97.8 F Pulse Rate 46 L Respiratory 20 20 Rate Blood Pressure 126/78 O2 Sat by Pulse 100 98 Oximetry ED Medical Decision Making - Lab Data Result diagrams: 07/15/17 15:18 07/15/17 15:18 - EKG Data -: EKG Interpreted by Me - EKG Data Interpretation: no acute changes 07/15/17 17:57 Atrial fibrillation - Medical Decision Making Discussed with Dr. Ch, I presented the patient to him, he agreed to admit the patient to his service. Critical care attestation.: If time is entered above; I have spent that time in minutes in the direct care of this critically ill patient, excluding procedure time. ED Disposition Clinical Impression: CHF exacerbation, Peripheral edema, Afib Disposition: DC-09 OP ADMIT IP TO THIS HOSP Is pt being admited?: Yes Condition: Stable
[2017-07-15 15:33] LABS: Basophils % (Auto) 0.6 % (0.0-1.8); Eosinophils % (Auto) 6.1 % (0.0-4.3); Hematocrit 39.9 % (35.5-45.6); Hemoglobin 13.2 gm/dl (11.8-15.2); Mean Corpuscular HGB Conc 33 % (32-34); Mean Corpuscular Hemoglobin 29 pg (28-32); Mean Corpuscular Volume 87 fl (84-94); Platelet Count 147 K/mm3 (140-440); Red Blood Count 4.58 M/mm3 (3.65-5.03); Red Cell Distribution Width 14.7 % (13.2-15.2); White Blood Count 3.8 K/mm3 (4.5-11.0)
--- NOTE | 2017-07-15 15:33 | XRay Report ---
AP CHEST: HISTORY: Dyspnea AP view of the chest demonstrates a normal mediastinal and cardiac contour with clear lungs and normal bony and soft tissue structures. IMPRESSION: Unremarkable AP chest.
[2017-07-15 15:53] LABS: Alanine Aminotransferase 12 units/L (7-56); Albumin 4.1 g/dL (3.9-5); Albumin/Globulin Ratio 1.5 %; Alkaline Phosphatase 74 units/L (35-129); Anion Gap 16 mmol/L; BUN/Creatinine Ratio 14; Blood Urea Nitrogen 13 mg/dL (9-20); Calcium 8.9 mg/dL (8.4-10.2); Carbon Dioxide 28 mmol/L (22-30); Chloride 99.7 mmol/L (98-107); Glucose 101 mg/dL (75-100); Potassium 4.1 mmol/L (3.6-5.0); Sodium 140 mmol/L (137-145); Total Protein 6.9 g/dL (6.3-8.2)
--- NOTE | 2017-07-15 18:03 | History and Physical Report ---
History of Present Illness Chief complaint: I cant breathe, and I ran out of my pills History of present illness: 72 YO Male with Systolic CHF (EF 35%), Atrial Fib on therapeutic anticoagulation , GERD, Asthma, HTN presents to ED for evaluation. Pt states that he has experienced shortness of breath and bilateral leg swelling for the past 4 days with worsening symptoms over the past 2 days. Pt states that he cannot walk for his normal distance due to shortness of breath. Pt acknowledges orthopnea/PND. Patient denies fever, chills, chest pain, palpitations, NVD, Syncope, Hemoptysis, Prolonged travel/immobililty, Individual/Family history of DVT/PE, unintentional weight loss, or night sweats. Pt states that his medication is mailed to him, but there was a mixup, and he did not get his medication. Pt seen and evaluated in ED and found to be in respiratory distress. Pt treated IAW CHF decompensation protocol, and admitted to telemetry. Past History Past Medical History: atrial fib, GERD, heart failure, hypertension Past Surgical History: appendectomy Social history: . denies: smoking, alcohol abuse, prescription drug abuse Family history: hypertension Medications and Allergies Allergies Allergy/AdvReac Type Severity Reaction Status Date / Time No Known Allergies Allergy Verified 04/23/15 15:10 Home Medications Medication Instructions Recorded Confirmed Last Taken Type ALPRAZolam [Xanax TAB] 0.5 mg PO QHS 04/23/15 12/15/16 04/28/15 History Sertraline [Zoloft] 100 mg PO DAILY 04/23/15 12/15/16 04/28/15 History Acyclovir [Zovirax Tab] 400 mg PO BID 12/15/16 12/15/16 Unknown History Aspirin [Aspirin BABY CHEW TAB] 81 mg PO QDAY tab.chew 12/19/16 Unknown Rx AtorvaSTATin [Lipitor] 10 mg PO QHS #30 tablet 12/19/16 Unknown Rx Dabigatran [Pradaxa] 150 mg PO BID #60 capsule 12/19/16 Unknown Rx Furosemide [Lasix TAB] 40 mg PO QDAY #30 tablet 12/19/16 Unknown Rx Lansoprazole [Prevacid] 30 mg PO QDAY #30 tab. 12/19/16 Unknown Rx Losartan [Cozaar] 50 mg PO QDAY #30 tablet 12/19/16 Unknown Rx Review of Systems Constitutional: weight gain, no weight loss, no fever, no chills, no sweats Ears, nose, mouth and throat: no ear pain, no ear discharge, no tinnitis, no decreased hearing, no nose pain, no nasal congestion, no nasal discharge Cardiovascular: orthopnea, shortness of breath, paroxysmal nocturnal dyspnea, leg edema, no chest pain Respiratory: no cough, no cough with sputum, no excessive sputum Gastrointestinal: no abdominal pain, no nausea, no vomiting, no diarrhea Genitourinary Male: no dysuria, no hematuria, no flank pain, no discharge, no urinary frequency, no urinary hesitancy Rectal: no pain, no incontinence, no bleeding Musculoskeletal: no neck pain, no shooting arm pain, no arm numbness/tingling, no low back pain Integumentary: no rash, no pruritis, no redness, no sores, no wounds, no jaundice Neurological: no head injury, no transient paralysis, no paralysis, no weakness , no parathesias, no numbness Psychiatric: no anxiety, no memory loss, no change in sleep habits, no sleep disturbances, no insomnia, no hypersomnia, no change in appetite Endocrine: no cold intolerance, no heat intolerance, no polyphagia, no excessive thirst, no polydipsia, no polyuria Hematologic/Lymphatic: no easy bruising, no easy bleeding Allergic/Immunologic: no urticaria, no allergic rhinitis, no wheezing Exam - Constitutional Vitals: Temp Pulse Resp BP Pulse Ox 97.8 F 46 L 20 126/78 98 07/15/17 14:15 07/15/17 14:15 07/15/17 17:33 07/15/17 14:15 07/15/17 17:33 General appearance: Present: mild distress - EENT Eyes: Present: PERRL ENT: hearing intact, clear oral mucosa - Neck Neck: Present: supple, normal ROM - Respiratory Respiratory: bilateral: diminished - Cardiovascular Rhythm: irregularly irregular Heart Sounds: Present: S1 & S2. Absent: rub, click - Extremities Extremities: pulses symmetrical, No edema Extremity abnormal: edema Peripheral Pulses: within normal limits - Abdominal General gastrointestinal: Present: soft, non-tender, non-distended, normal bowel sounds Male genitourinary: Present: normal - Integumentary Integumentary: Present: clear, dry - Musculoskeletal Musculoskeletal: gait normal, strength equal bilaterally - Psychiatric Psychiatric: appropriate mood/affect, intact judgment & insight - Neurologic Neurologic: CNII-XII intact, moves all extremities Results - Labs CBC & Chem 7: 07/15/17 15:18 07/15/17 15:18 Labs: Abnormal lab results 07/15/17 07/15/17 07/15/17 Range/Units 15:18 15:18 15:18 WBC 3.8 L (4.5-11.0) K/mm3 [place] % (Auto) 7.9 H (0.0-7.3) % Eos % (Auto) 6.1 H (0.0-4.3) % Lymph # 0.9 L (1.2-5.4) K/mm3 Glucose 101 H (75-100) mg/dL Total Bilirubin 1.30 H (0.1-1.2) mg/dL NT-Pro-B Natriuret Pep 8879 H (0-900) pg/mL Assessment and Plan - Patient Problems (1) Respiratory failure Current Visit: Yes Status: Acute Qualifiers: Respiratory failure complication: hypoxia Plan to address problem: Supplemental oxygen, nebs, aspiration precautions, diuresis, monitor uop q shift , NIPPV as clinically indicated, D dimer,telemetry monitoring (2) Afib Current Visit: Yes Status: Acute Qualifiers: Atrial fibrillation type: chronic Qualified Code(s): I48.2 - Chronic atrial fibrillation Plan to address problem: therapeutic anticoagulation with pradaxa, supportive care, (3) CHF exacerbation Current Visit: Yes Status: Acute Qualifiers: Congestive heart failure type: systolic Qualified Code(s): I50.23 - Acute on chronic systolic (congestive) heart failure Plan to address problem: CHF Protocol: fluid restriction, monitor uop q shift, afterload reduction, diuresis, low sodium diet, daily weight, (4) DVT prophylaxis Current Visit: Yes Status: Acute
[2017-07-15] MEDS ORDERED: PROVENTIL IH PRN (18:09)
[2017-07-15] MEDS ORDERED: ZOFRAN IV PRN (18:09)
[2017-07-15] MEDS ORDERED: MILK OF MAGNESIA PO PRN (18:09)
[2017-07-15] MEDS ORDERED: DULCOLAX PR PRN (18:09)
[2017-07-15] MEDS ORDERED: NON-FORMULARY (Acyclovir [Zovirax Tab] 400 MG) PO SCH (22:00)
[2017-07-15] MEDS: PRADAXA PO SCH (22:12)
[2017-07-15] MEDS: ZOVIRAX PO SCH (22:12)
[2017-07-15] MEDS: XANAX PO SCH (22:13)
[2017-07-16] MEDS ORDERED: LASIX IV SCH (06:00)
[2017-07-16] MEDS ORDERED: NON-FORMULARY (Lansoprazole [Prevacid] 30 MG) PO SCH (10:00)
[2017-07-16] MEDS: BABY ASPIRIN PO SCH (10:18)
[2017-07-16] MEDS: PRADAXA PO SCH (10:19)
[2017-07-16] MEDS: PROTONIX PO SCH (10:19)
[2017-07-16] MEDS: COZAAR PO SCH (10:19)
[2017-07-16] MEDS: ZOLOFT PO SCH (10:19)
--- NOTE | 2017-07-16 13:02 | Consultation ---
History of Present Illness Consult date: 07/16/17 Requesting physician: LISA SAL Consult reason: bradycardia History of present illness: Pt is a 72 YO male with a past medical history significant for chronic atrial fibrillation with SVR, noncompliance with systemic anticoagulation, cardiomyopathy, chronic systolic heart failure, CVA, HTN. He has been seen by our practice on a prior hospitalization and has been seen infrequently in our office. He states he was diagnosed with heart failure and atrial fibrillation over 10 years ago but has not had regular cardiology follow up in 10 years. He presented with c/o progressively worsening SOB, ERWIN and BLE edema for the past 2 months, with worsening symptoms for 4 days prior to arrival. He also reports orthopnea and PND which are chronic and unchanged from baseline. He denies any chest pain, palpitations, n/v, diaphoresis, dizziness or syncope. He admits that he has not taken most of his prescribed medications in the past 1.5 weeks because his medications are usually mailed to him but he did not know how to renew the delivery service and thus stopped receiving his medications recently. Additionally, pt has been noncompliant with systemic anticoagulation. He was prescribed Pradaxa but reports that he could not afford this medication, so his insurance company told him that plavix was "comparable" to Pradaxa and instead placed him on Plavix. He reports has been taking Plavix daily and last dose was yesterday. Pt reports that he has also been offered Coumadin in the past but does not want to have frequent INR checks. Following this admission, pt was found to be in AFib with SRV, HR in 40s, BPs WNL, and thus cardiology has been consulted. Echo performed 11/2016 showed EF 35-40%, mild LVH, RV mildly dilated, RA moderately dilated, mild MR, mild to mod TR, LA m ildly dilated, RVSP 40mmHg. Lexiscan MPI stress test done 12/2016 showed a mixture of scar plus ischemia in the basal inferoseptal, mid inferior and apical inferior myocardial velasquez, LV 33 %, ischemia appears to be periinfarction. Past History Past Medical History: atrial fib, GERD, heart failure, hypertension Past Surgical History: appendectomy Social history: . denies: smoking, alcohol abuse, prescription drug abuse Family history: hypertension Medications and Allergies Allergies Allergy/AdvReac Type Severity Reaction Status Date / Time No Known Allergies Allergy Verified 04/23/15 15:10 Home Medications Medication Instructions Recorded Confirmed Last Taken Type ALPRAZolam [Xanax TAB] 0.5 mg PO QHS 04/23/15 07/16/17 1 Week Ago History ~07/09/17 Sertraline [Zoloft] 100 mg PO DAILY 04/23/15 07/16/17 1 Day Ago History ~07/15/17 Acyclovir [Zovirax Tab] 400 mg PO BID 12/15/16 07/16/17 1 Day Ago History ~07/15/17 Aspirin [Aspirin BABY CHEW TAB] 81 mg PO QDAY tab.chew 12/19/16 07/16/17 1 Day Ago Rx ~07/15/17 AtorvaSTATin [Lipitor] 10 mg PO QHS #30 tablet 12/19/16 07/16/17 1 Day Ago Rx ~07/15/17 Dabigatran [Pradaxa] 150 mg PO BID #60 capsule 12/19/16 07/16/17 1 Day Ago Rx ~07/15/17 Furosemide [Lasix TAB] 40 mg PO QDAY #30 tablet 12/19/16 07/16/17 1 Day Ago Rx ~07/15/17 Lansoprazole [Prevacid] 30 mg PO QDAY #30 tab. 12/19/16 07/16/17 1 Week Ago Rx ~07/09/17 Losartan [Cozaar] 50 mg PO QDAY #30 tablet 12/19/16 07/16/17 1 Day Ago Rx ~07/15/17 Active Meds: Active Medications Acetaminophen (Tylenol) 650 mg PO Q4H PRN PRN Reason: Pain MILD(1-3)/Fever >100.5/HORTA Acyclovir (Zovirax) 400 mg PO BID [facility] Last Admin: 07/15/17 22:12 Dose: 400 mg Albuterol (Proventil) 2.5 mg IH Q4HRT PRN PRN Reason: Shortness Of Breath Alprazolam (Xanax) 0.5 mg PO QHS [facility] Last Admin: 07/15/17 22:13 Dose: 0.5 mg Aspirin (Baby Aspirin) 81 mg PO QDAY [facility] Last Admin: 07/16/17 10:18 Dose: 81 mg Atorvastatin Calcium (Lipitor) 10 mg PO QHS [facility] Last Admin: 07/15/17 22:13 Dose: 10 mg Bisacodyl (Dulcolax) 10 mg [place] QDAY PRN PRN Reason: Constipation unrelieved by MOM Dabigatran (Pradaxa) 150 mg PO BID [facility] PRN Reason: Protocol Last Admin: 07/16/17 10:19 Dose: 150 mg Furosemide (Lasix) 40 mg IV DAILY@0600 [facility] Influenza Virus Vaccine Quadrival (Fluarix Quad [id number](36 Mos+) 0.5 ml IM .ONCE ONE Stop: 07/17/17 12:01 Losartan Potassium (Cozaar) 50 mg PO QDAY [facility] Last Admin: 07/16/17 10:19 Dose: Not Given Magnesium Hydroxide (Milk Of Magnesia) 30 ml PO Q4H PRN PRN Reason: Constipation Ondansetron HCl (Zofran) 4 mg IV Q8H PRN PRN Reason: N/V unrelieved by Reglan Pantoprazole Sodium (Protonix) 40 mg PO DAILY [facility] Last Admin: 07/16/17 10:19 Dose: 40 mg Sertraline HCl (Zoloft) 100 mg PO DAILY [facility] Last Admin: 07/16/17 10:19 Dose: 100 mg Review of Systems Constitutional: no fever, no chills, no sweats Ears, nose, mouth and throat: no ear pain, no nose pain Cardiovascular: orthopnea, edema (BLE), shortness of breath, dyspnea on exertion , paroxysmal nocturnal dyspnea, high blood pressure, leg edema, decreased exercise tolerance, no chest pain, no palpitations, no rapid/irregular heart beat, no syncope, no lightheadedness Respiratory: shortness of breath, dyspnea on exertion, no cough, no congestion, no wheezing, no pain on inspiration Gastrointestinal: no abdominal pain, no nausea, no vomiting, no diarrhea, no constipation Genitourinary Male: no dysuria, no hematuria, no flank pain, no discharge, no urinary frequency, no urinary hesitancy Musculoskeletal: no neck stiffness, no neck pain, no shooting arm pain, no arm numbness/tingling, no low back pain, no shooting leg pain, no leg numbness/ tingling, no redness of joints Integumentary: no rash, no pruritis, no redness, no sores, no wounds Neurological: no paralysis, no weakness, no parathesias, no numbness, no tingling, no seizures, no syncope Psychiatric: no anxiety Endocrine: no cold intolerance, no heat intolerance Hematologic/Lymphatic: no easy bruising, no easy bleeding, no lymphadenopathy Allergic/Immunologic: no urticaria, no wheezing, no persistent infections Physical Examination Vital Signs Temp Pulse Resp BP Pulse Ox 97.8 F 46 L 20 126/78 100 07/15/17 14:15 07/15/17 14:15 07/15/17 14:15 07/15/17 14:15 07/15/17 14:15 General appearance: no acute distress HEENT: Positive: PERRL, Normocephaly, Mucus Membranes Moist Neck: Positive: neck supple, trachea midline Cardiac: Positive: irregularly irregular, S1/S2, Bradycardia Lungs: Positive: Decreased Breath Sounds Neuro: Positive: Grossly Intact Abdomen: Positive: Soft. Negative: Tender Skin: Positive: Clear. Negative: Rash, Wound Musculoskeletal: No Pain, Normal Range of Motion Extremities: Present: +2 Edema (BLE) Results 07/15/17 15:18 07/15/17 15:18 Cardiac Enzymes 07/15/17 Range/Units 15:18 AST 19 (5-40) units/L CBC 07/15/17 Range/Units 15:18 WBC 3.8 L (4.5-11.0) K/mm3 RBC 4.58 (3.65-5.03) M/mm3 Hgb 13.2 (11.8-15.2) gm/dl Hct 39.9 (35.5-45.6) % Plt Count 147 (140-440) K/mm3 Lymph # 0.9 L (1.2-5.4) K/mm3 Jackson # 0.3 (0.0-0.8) K/mm3 Eos # 0.2 (0.0-0.4) K/mm3 Baso # 0.0 (0.0-0.1) K/mm3 Comprehensive Metabolic Panel 07/15/17 Range/Units 15:18 Sodium 140 (137-145) mmol/L Potassium 4.1 (3.6-5.0) mmol/L Chloride 99.7 (98-107) mmol/L Carbon Dioxide 28 (22-30) mmol/L BUN 13 (9-20) mg/dL Creatinine 0.9 (0.8-1.5) mg/dL Glucose 101 H (75-100) mg/dL Calcium 8.9 (8.4-10.2) mg/dL AST 19 (5-40) units/L ALT 12 (7-56) units/L Alkaline Phosphatase 74 (35-129) units/L Total Protein 6.9 (6.3-8.2) g/dL Albumin 4.1 (3.9-5) g/dL - Imaging and Cardiology Echo: report reviewed ( EF 35-40%, mild LVH, RV mildly dilated, RA moderately dilated, mild MR, mild to mod TR, LA m ildly dilated, RVSP 40mmHg) EKG: report reviewed, image reviewed EKG interpretations - Telemetry EKG Rhythm: Atrial Fibrillation - EKG Supraventricular dysrhythmia: atrial fibrillation Assessment and Plan Assessment: Acute on chronic systolic heart failure CMP Chronic atrial fibrillation with SVR - pt asympotomatic, BPs stable. HTN H/o CVA H/o lymphoma Mildly elevated TSH - free T4 WNL H/o noncompliance with systemic anticoagulation Plan: F/u echo. Consult EP for possible PPM implantation. No emergent indication for TVP or PPM implantation given that pt is currently asymptomatic and hemodynamically stable. Decrease IV lasix to 40mg daily. Cont to hold all AV river blocking agents. Cont losartan. In regards to systemic anticoagulation, pt does not wish to continue Pradaxa. Pt states that he will consider initiation of coumadin. Will await EP recommendations prior to initiation of AC. Assessment and plan reviewed with pt at bedside. The patient has been seen in conjunction with Dr. Clark who agrees with the assessment and plan of care.
--- NOTE | 2017-07-16 15:06 | Progress Note ---
Assessment and Plan Assessment and plan: --Symptomatic bradycardia; oral beta blockers, cardiology consultation Possible EP studies and permanent pacemaker --Acute on chronic systolic congestive heart failure Ejection fraction 35-40% continue anti-failure medications low sodium diet, input output monitoring, fluid restriction --History of A. fib with rapid ventricle rate, patient has no symptoms Continue current management, noncompliant with anticoagulation --Acute on chronic respiratory failure; secondary to acute on chronic congestive heart failure, oxygen IV diuretics, nebulizers, IV antibiotics --History of lymphoma; stable --Medical non-compliance; counseling done ,patient strongly advised to adhere to the treatment plan --Case management to assist with home health nurse at [place] Echo performed 11/2016 showed EF 35-40%, mild LVH, RV mildly dilated, RA moderately dilated, mild MR, mild to mod TR, LA m ildly dilated, RVSP 40mmHg. Lexiscan MPI stress test done 12/2016 showed a mixture of scar plus ischemia in the basal inferoseptal, mid inferior and apical inferior myocardial velasquez, LV 33 %, ischemia appears to be periinfarction. Follow cardiology evaluation and recommendation History Interval history: Patient seen and examined medical records reviewed Complaints of shortness of breath, has some problems filling his prescriptions Did not take medications for 1 week Denies any chest pain, complains of generalized weakness and shortness of breath Nurse reports that patient is bradycardic, discussed with telemetry nurse Heart rate changes between 30s and 40s, no syncope Hospitalist Physical - Constitutional Vitals: Temp Pulse Resp BP Pulse Ox 97.8 F 60 20 130/64 92 07/16/17 04:15 07/16/17 00:12 07/16/17 04:15 07/16/17 04:15 07/16/17 04:15 General appearance: Present: no acute distress, well-nourished - EENT Eyes: Present: PERRL, EOM intact - Neck Neck: Present: supple, normal ROM - Respiratory Respiratory effort: normal Respiratory: bilateral: diminished, rales, negative: rhonchi, wheezing - Cardiovascular Rhythm: regular Heart Sounds: Present: S1 & S2 (bradycardia) - Extremities Extremities: no ischemia, No edema Peripheral Pulses: within normal limits - Abdominal General gastrointestinal: soft, non-tender, non-distended, normal bowel sounds - Integumentary Integumentary: Present: clear, warm - Psychiatric Psychiatric: appropriate mood/affect, cooperative - Neurologic Neurologic: CNII-XII intact, moves all extremities Results - Labs CBC & Chem 7: 07/15/17 15:18 07/15/17 15:18 Labs: Laboratory Last Values WBC 3.8 K/mm3 (4.5-11.0) L 07/15/17 15:18 RBC 4.58 M/mm3 (3.65-5.03) 07/15/17 15:18 Hgb 13.2 gm/dl (11.8-15.2) 07/15/17 15:18 Hct 39.9 % (35.5-45.6) 07/15/17 15:18 MCV 87 fl (84-94) 07/15/17 15:18 MCH 29 pg (28-32) 07/15/17 15:18 MCHC 33 % (32-34) 07/15/17 15:18 RDW 14.7 % (13.2-15.2) 07/15/17 15:18 Plt Count 147 K/mm3 (140-440) 07/15/17 15:18 Lymph % (Auto) 23.9 % (13.4-35.0) 07/15/17 15:18 Harris % (Auto) 7.9 % (0.0-7.3) H 07/15/17 15:18 Eos % (Auto) 6.1 % (0.0-4.3) H 07/15/17 15:18 Baso % (Auto) 0.6 % (0.0-1.8) 07/15/17 15:18 Lymph # 0.9 K/mm3 (1.2-5.4) L 07/15/17 15:18 Harris # 0.3 K/mm3 (0.0-0.8) 07/15/17 15:18 Eos # 0.2 K/mm3 (0.0-0.4) 07/15/17 15:18 Baso # 0.0 K/mm3 (0.0-0.1) 07/15/17 15:18 Seg Neutrophils % 61.5 % (40.0-70.0) 07/15/17 15:18 Seg Neutrophils # 2.3 K/mm3 (1.8-7.7) 07/15/17 15:18 D-Dimer 269.09 ng/mlDDU (0-234) H 07/15/17 18:15 Sodium 140 mmol/L (137-145) 07/15/17 15:18 Potassium 4.1 mmol/L (3.6-5.0) 07/15/17 15:18 Chloride 99.7 mmol/L (98-107) 07/15/17 15:18 Carbon Dioxide 28 mmol/L (22-30) 07/15/17 15:18 Anion Gap 16 mmol/L 07/15/17 15:18 BUN 13 mg/dL (9-20) 07/15/17 15:18 Creatinine 0.9 mg/dL (0.8-1.5) 07/15/17 15:18 Estimated GFR > 60 ml/min 07/15/17 15:18 BUN/Creatinine Ratio 14 % 07/15/17 15:18 Glucose 101 mg/dL (75-100) H 07/15/17 15:18 Calcium 8.9 mg/dL (8.4-10.2) 07/15/17 15:18 Total Bilirubin 1.30 mg/dL (0.1-1.2) H 07/15/17 15:18 AST 19 units/L (5-40) 07/15/17 15:18 ALT 12 units/L (7-56) 07/15/17 15:18 Alkaline Phosphatase 74 units/L (35-129) 07/15/17 15:18 Troponin T 0.012 ng/mL (0.00-0.029) 07/15/17 15:18 NT-Pro-B Natriuret Pep 8879 pg/mL (0-900) H 07/15/17 15:18 Total Protein 6.9 g/dL (6.3-8.2) 07/15/17 15:18 Albumin 4.1 g/dL (3.9-5) 07/15/17 15:18 Albumin/Globulin Ratio 1.5 % 07/15/17 15:18 TSH 5.110 mlU/mL (0.270-4.200) H 07/15/17 18:15 Free T4 0.78 ng/dL (0.76-1.46) 07/15/17 18:15
[2017-07-16] MEDS: ZOVIRAX PO SCH ×2 (15:24→21:39)
[2017-07-16] MEDS: XANAX PO SCH (21:40)
[2017-07-17 06:00] LABS: Anion Gap 16 mmol/L; BUN/Creatinine Ratio 16; Blood Urea Nitrogen 16 mg/dL (9-20); Calcium 8.7 mg/dL (8.4-10.2); Carbon Dioxide 29 mmol/L (22-30); Chloride 100.4 mmol/L (98-107); Glucose 138 mg/dL (75-100); Potassium 3.9 mmol/L (3.6-5.0); Sodium 141 mmol/L (137-145)
[2017-07-17] MEDS: LASIX IV SCH (06:27)
--- NOTE | 2017-07-17 09:45 | Progress Note ---
Assessment and Plan Assessment and plan: --Symptomatic bradycardia; oral beta blockers, cardiology following Possible EP studies and permanent pacemaker placement --Acute on chronic systolic congestive heart failure Ejection fraction 35-40% continue anti-failure medications low sodium diet, input output monitoring, fluid restriction --History of A. fib with rapid ventricle rate, patient has no symptoms Continue current management, noncompliant with anticoagulation --Acute on chronic respiratory failure; secondary to acute on chronic congestive heart failure, oxygen IV diuretics, nebulizers, IV antibiotics --History of lymphoma; stable --Medical non-compliance; counseling done ,patient strongly advised to adhere to the treatment plan --Case management to assist with home health nurse at [place] Echo performed 11/2016 showed EF 35-40%, mild LVH, RV mildly dilated, RA moderately dilated, mild MR, mild to mod TR, LA m ildly dilated, RVSP 40mmHg. Lexiscan MPI stress test done 12/2016 showed a mixture of scar plus ischemia in the basal inferoseptal, mid inferior and apical inferior myocardial velasquez, LV 33 %, ischemia appears to be periinfarction. Continue current management History Interval history: Patient seen and examined in his room medical records reviewed Denies chest pain or shortness of breath Remains bradycardic heart rate ranges in 30s and 40s Denies dizziness ,syncope or near syncopal episode Hospitalist Physical - Constitutional Vitals: Temp Pulse Resp BP Pulse Ox 97.8 F 42 L 20 112/74 97 07/17/17 04:20 07/17/17 04:20 07/17/17 04:20 07/17/17 04:20 07/17/17 04:20 General appearance: Present: no acute distress, well-nourished - EENT Eyes: Present: PERRL, EOM intact - Neck Neck: Present: supple, normal ROM - Respiratory Respiratory effort: normal Respiratory: bilateral: diminished, negative: rales, rhonchi, wheezing - Cardiovascular Rhythm: regular Heart Sounds: Present: S1 & S2 (bradycardia) - Extremities Extremities: no ischemia, No edema - Abdominal General gastrointestinal: soft, non-tender, non-distended, normal bowel sounds - Integumentary Integumentary: Present: clear, warm - Psychiatric Psychiatric: appropriate mood/affect, cooperative - Neurologic Neurologic: CNII-XII intact, moves all extremities Results - Labs CBC & Chem 7: 07/15/17 15:18 12/16/17 04:32 Labs: Laboratory Last Values WBC 3.8 K/mm3 (4.5-11.0) L 07/15/17 15:18 RBC 4.58 M/mm3 (3.65-5.03) 07/15/17 15:18 Hgb 13.2 gm/dl (11.8-15.2) 07/15/17 15:18 Hct 39.9 % (35.5-45.6) 07/15/17 15:18 MCV 87 fl (84-94) 07/15/17 15:18 MCH 29 pg (28-32) 07/15/17 15:18 MCHC 33 % (32-34) 07/15/17 15:18 RDW 14.7 % (13.2-15.2) 07/15/17 15:18 Plt Count 147 K/mm3 (140-440) 07/15/17 15:18 Lymph % (Auto) 23.9 % (13.4-35.0) 07/15/17 15:18 [place] % (Auto) 7.9 % (0.0-7.3) H 07/15/17 15:18 Eos % (Auto) 6.1 % (0.0-4.3) H 07/15/17 15:18 Baso % (Auto) 0.6 % (0.0-1.8) 07/15/17 15:18 Lymph # 0.9 K/mm3 (1.2-5.4) L 07/15/17 15:18 [place] # 0.3 K/mm3 (0.0-0.8) 07/15/17 15:18 Eos # 0.2 K/mm3 (0.0-0.4) 07/15/17 15:18 Baso # 0.0 K/mm3 (0.0-0.1) 07/15/17 15:18 Seg Neutrophils % 61.5 % (40.0-70.0) 07/15/17 15:18 Seg Neutrophils # 2.3 K/mm3 (1.8-7.7) 07/15/17 15:18 D-Dimer 269.09 ng/mlDDU (0-234) H 07/15/17 18:15 Sodium 141 mmol/L (137-145) 07/17/17 04:32 Potassium 3.9 mmol/L (3.6-5.0) 07/17/17 04:32 Chloride 100.4 mmol/L (98-107) 07/17/17 04:32 Carbon Dioxide 29 mmol/L (22-30) 07/17/17 04:32 Anion Gap 16 mmol/L 07/17/17 04:32 BUN 16 mg/dL (9-20) 07/17/17 04:32 Creatinine 1.0 mg/dL (0.8-1.5) 07/17/17 04:32 Estimated GFR > 60 ml/min 07/17/17 04:32 BUN/Creatinine Ratio 16 % 07/17/17 04:32 Glucose 138 mg/dL (75-100) H 07/17/17 04:32 Calcium 8.7 mg/dL (8.4-10.2) 07/17/17 04:32 Total Bilirubin 1.30 mg/dL (0.1-1.2) H 07/15/17 15:18 AST 19 units/L (5-40) 07/15/17 15:18 ALT 12 units/L (7-56) 07/15/17 15:18 Alkaline Phosphatase 74 units/L (35-129) 07/15/17 15:18 Troponin T 0.012 ng/mL (0.00-0.029) 07/15/17 15:18 NT-Pro-B Natriuret Pep 8879 pg/mL (0-900) H 07/15/17 15:18 Total Protein 6.9 g/dL (6.3-8.2) 07/15/17 15:18 Albumin 4.1 g/dL (3.9-5) 07/15/17 15:18 Albumin/Globulin Ratio 1.5 % 07/15/17 15:18 TSH 5.110 mlU/mL (0.270-4.200) H 07/15/17 18:15 Free T4 0.78 ng/dL (0.76-1.46) 07/15/17 18:15
[2017-07-17] MEDS: BABY ASPIRIN PO SCH (10:51)
[2017-07-17] MEDS: COZAAR PO SCH ×2 (10:51→10:52)
[2017-07-17] MEDS: PROTONIX PO SCH (10:51)
[2017-07-17] MEDS: ZOVIRAX PO SCH ×2 (10:51→21:10)
[2017-07-17] MEDS: ZOLOFT PO SCH (10:52)
[2017-07-17] MEDS: TYLENOL PO PRN (11:10)
[2017-07-17] MEDS ORDERED: PNEUMOVAX 23 IM ONE (12:00)
[2017-07-17] MEDS ORDERED: Fluarix Quad 2017-2018(36 MOS+ IM ONE (12:00)
--- NOTE | 2017-07-17 15:16 | Progress Note ---
Assessment and Plan Assessment: Acute on chronic systolic heart failure CMP Chronic atrial fibrillation with SVR - pt asympotomatic, BPs stable. HTN H/o CVA H/o lymphoma Mildly elevated TSH - free T4 WNL H/o noncompliance with systemic anticoagulation Plan: F/u echo. Consult EP for possible PPM implantation. No emergent indication for TVP or PPM implantation given that pt is currently asymptomatic and hemodynamically stable. Decrease IV lasix to 40mg daily. Cont to hold all AV river blocking agents. Cont losartan. In regards to systemic anticoagulation, pt does not wish to continue Pradaxa. Pt states that he will consider initiation of coumadin. Will await EP recommendations prior to initiation of AC. Echo showed EF 45-50%,EF lower limits of normal. Discussed with patient about anticoagulationand pacemaker. Says could not afford NOAC's,wants to be started on Warfarin,willing to have PT/ INR followed. Wants to have pacemaker inserted prior to discharge.Will arrange for same when feasible.Will hold Warfarin till PPM was inserted. Subjective Date of service: 07/17/17 Interval history: feels OK,leg hurts,venous doppler study of leg pending,denies chest pain. Objective Vital Signs Temp Pulse Resp BP Pulse Ox 07/17/17 10:52 38 L 114/72 07/17/17 04:20 97.8 F 42 L 20 112/74 97 07/17/17 00:38 98.3 F 39 L 19 113/63 92 07/16/17 20:07 97.3 F L 40 L 17 120/82 98 07/16/17 20:00 38 L 07/16/17 16:40 99 07/16/17 15:59 97.0 F L 39 L 14 123/65 96 07/16/17 15:32 40 L - Physical Examination HEENT: Positive: PERRL, Normocephaly, Mucus Membranes Moist Neck: Positive: neck supple, trachea midline Cardiac: Positive: Irregularly Regular Lungs: Positive: Normal Breath Sounds Neuro: Positive: Grossly Intact Abdomen: Positive: Soft. Negative: Tender Skin: Positive: Clear. Negative: Rash, Wound Musculoskeletal: No Pain, Normal Range of Motion Extremities: Present: +2 Edema (BLE) - Labs and Meds Comprehensive Metabolic Panel 07/17/17 Range/Units 04:32 Sodium 141 (137-145) mmol/L Potassium 3.9 (3.6-5.0) mmol/L Chloride 100.4 (98-107) mmol/L Carbon Dioxide 29 (22-30) mmol/L BUN 16 (9-20) mg/dL Creatinine 1.0 (0.8-1.5) mg/dL Glucose 138 H (75-100) mg/dL Calcium 8.7 (8.4-10.2) mg/dL - Imaging and Cardiology EKG: report reviewed, image reviewed Echo: report reviewed ( EF 35-40%, mild LVH, RV mildly dilated, RA moderately dilated, mild MR, mild to mod TR, LA m ildly dilated, RVSP 40mmHg)
[2017-07-17] MEDS: XANAX PO SCH (21:09)
[2017-07-18] MEDS: LASIX IV SCH (06:40)
[2017-07-18] MEDS: BABY ASPIRIN PO SCH (09:05)
[2017-07-18] MEDS: ZOVIRAX PO SCH ×2 (09:06→22:02)
[2017-07-18] MEDS: PROTONIX PO SCH (09:06)
[2017-07-18] MEDS: ZOLOFT PO SCH (09:14)
[2017-07-18] MEDS: COZAAR PO SCH (09:15)
--- NOTE | 2017-07-18 16:25 | Progress Note ---
Assessment and Plan Assessment: Acute on chronic systolic heart failure CMP Chronic atrial fibrillation with SVR - pt asympotomatic, BPs stable. HTN H/o CVA H/o lymphoma Mildly elevated TSH - free T4 WNL H/o noncompliance with systemic anticoagulation Plan: F/u echo. Consult EP for possible PPM implantation. No emergent indication for TVP or PPM implantation given that pt is currently asymptomatic and hemodynamically stable. Decrease IV lasix to 40mg daily. Cont to hold all AV river blocking agents. Cont losartan. In regards to systemic anticoagulation, pt does not wish to continue Pradaxa. Pt states that he will consider initiation of coumadin. Will await EP recommendations prior to initiation of AC. Echo showed EF 45-50%,EF lower limits of normal. Discussed with patient about anticoagulationand pacemaker. Says could not afford NOAC's,wants to be started on Warfarin,willing to have PT/ INR followed. Wants to have pacemaker inserted prior to discharge.Will arrange for same when feasible.Will hold Warfarin till PPM was inserted. 07/18/2017>patient is stable,waiting for his pacemaker,which he wants to have done before d/c(apparently in past it was discuused but never carried out). Subjective Date of service: 07/18/17 Interval history: feels better,no particular complaints,denies chest pain or dizziness.Willing to have pacemker procedure this Wednesday. Objective Vital Signs Temp Pulse Pulse Resp BP Pulse Ox 07/18/17 09:15 49 L 07/18/17 07:46 98 07/18/17 05:08 97.6 F 41 L 17 122/63 96 07/18/17 01:32 98.0 F 36 L 18 111/64 97 07/17/17 21:00 46 L 20 07/17/17 20:31 98.4 F 41 L 21 130/68 98 07/17/17 20:02 100 07/17/17 19:49 44 L 07/17/17 17:09 97.7 F 43 L 16 148/77 98 - Physical Examination HEENT: Positive: PERRL, Normocephaly, Mucus Membranes Moist Neck: Positive: neck supple, trachea midline Cardiac: Positive: Reg Rate and Rhythm Neuro: Positive: Grossly Intact Abdomen: Positive: Soft. Negative: Mass, Tender Skin: Positive: Clear. Negative: Rash, Wound Musculoskeletal: No Pain, Normal Range of Motion Extremities: Present: +1 Edema - Imaging and Cardiology EKG: report reviewed, image reviewed Echo: report reviewed ( EF 35-40%, mild LVH, RV mildly dilated, RA moderately dilated, mild MR, mild to mod TR, LA m ildly dilated, RVSP 40mmHg)
--- NOTE | 2017-07-18 19:17 | Progress Note ---
Assessment and Plan Assessment and plan: --A. fib with low ventricular rate /bradycardia; oral beta blockers, cardiology following Possible EP studies and permanent pacemaker placement --Acute on chronic systolic congestive heart failure Ejection fraction 35-40% continue anti-failure medications low sodium diet, input output monitoring, fluid restriction --History of A. fib , noncompliant with anticoagulation --Acute on chronic respiratory failure; secondary to acute on chronic congestive heart failure, oxygen IV diuretics, nebulizers, IV antibiotics --History of lymphoma; stable --Medical non-compliance; counseling done ,patient strongly advised to adhere to the treatment plan --Case management to assist with home health nurse at [facility] Plan of care discussed with the patient and his nurse History Interval history: Patient seen and examined medical records reviewed Denies chest pain or shortness of breath Remains bradycardic heart rate in 40s and 30s Awaiting EP studies possible permanent pacemaker placement Hospitalist Physical - Constitutional Vitals: Temp Pulse Resp BP Pulse Ox 97.6 F 49 L 17 122/63 98 07/18/17 05:08 07/18/17 09:15 07/18/17 05:08 07/18/17 05:08 07/18/17 07:46 General appearance: Present: no acute distress, well-nourished - EENT Eyes: Present: PERRL, EOM intact - Neck Neck: Present: supple, normal ROM - Respiratory Respiratory effort: normal Respiratory: bilateral: diminished, negative: rales, rhonchi, wheezing - Cardiovascular Rhythm: regular Heart Sounds: Present: S1 & S2 (bradycardia) - Extremities Extremities: no ischemia, No edema - Abdominal General gastrointestinal: soft, non-tender, non-distended, normal bowel sounds - Integumentary Integumentary: Present: clear, warm - Psychiatric Psychiatric: appropriate mood/affect, cooperative - Neurologic Neurologic: CNII-XII intact, moves all extremities Results - Labs CBC & Chem 7: 07/15/17 15:18 07/17/17 04:32 Labs: Laboratory Last Values WBC 3.8 K/mm3 (4.5-11.0) L 07/15/17 15:18 RBC 4.58 M/mm3 (3.65-5.03) 07/15/17 15:18 Hgb 13.2 gm/dl (11.8-15.2) 07/15/17 15:18 Hct 39.9 % (35.5-45.6) 07/15/17 15:18 MCV 87 fl (84-94) 07/15/17 15:18 MCH 29 pg (28-32) 07/15/17 15:18 MCHC 33 % (32-34) 07/15/17 15:18 RDW 14.7 % (13.2-15.2) 07/15/17 15:18 Plt Count 147 K/mm3 (140-440) 07/15/17 15:18 Lymph % (Auto) 23.9 % (13.4-35.0) 07/15/17 15:18 [place] % (Auto) 7.9 % (0.0-7.3) H 07/15/17 15:18 Eos % (Auto) 6.1 % (0.0-4.3) H 07/15/17 15:18 Baso % (Auto) 0.6 % (0.0-1.8) 07/15/17 15:18 Lymph # 0.9 K/mm3 (1.2-5.4) L 07/15/17 15:18 [place] # 0.3 K/mm3 (0.0-0.8) 07/15/17 15:18 Eos # 0.2 K/mm3 (0.0-0.4) 07/15/17 15:18 Baso # 0.0 K/mm3 (0.0-0.1) 07/15/17 15:18 Seg Neutrophils % 61.5 % (40.0-70.0) 07/15/17 15:18 Seg Neutrophils # 2.3 K/mm3 (1.8-7.7) 07/15/17 15:18 D-Dimer 269.09 ng/mlDDU (0-234) H 07/15/17 18:15 Sodium 141 mmol/L (137-145) 07/17/17 04:32 Potassium 3.9 mmol/L (3.6-5.0) 07/17/17 04:32 Chloride 100.4 mmol/L (98-107) 07/17/17 04:32 Carbon Dioxide 29 mmol/L (22-30) 07/17/17 04:32 Anion Gap 16 mmol/L 07/17/17 04:32 BUN 16 mg/dL (9-20) 07/17/17 04:32 Creatinine 1.0 mg/dL (0.8-1.5) 07/17/17 04:32 Estimated GFR > 60 ml/min 07/17/17 04:32 BUN/Creatinine Ratio 16 % 07/17/17 04:32 Glucose 138 mg/dL (75-100) H 07/17/17 04:32 Calcium 8.7 mg/dL (8.4-10.2) 07/17/17 04:32 Total Bilirubin 1.30 mg/dL (0.1-1.2) H 07/15/17 15:18 AST 19 units/L (5-40) 07/15/17 15:18 ALT 12 units/L (7-56) 07/15/17 15:18 Alkaline Phosphatase 74 units/L (35-129) 07/15/17 15:18 Troponin T 0.012 ng/mL (0.00-0.029) 07/15/17 15:18 NT-Pro-B Natriuret Pep 8879 pg/mL (0-900) H 07/15/17 15:18 Total Protein 6.9 g/dL (6.3-8.2) 07/15/17 15:18 Albumin 4.1 g/dL (3.9-5) 07/15/17 15:18 Albumin/Globulin Ratio 1.5 % 07/15/17 15:18 TSH 5.110 mlU/mL (0.270-4.200) H 07/15/17 18:15 Free T4 0.78 ng/dL (0.76-1.46) 07/15/17 18:15
[2017-07-18] MEDS: XANAX PO SCH (22:02)
[2017-07-19] MEDS: LASIX IV SCH (06:29)
--- NOTE | 2017-07-19 09:05 | Progress Note ---
Assessment and Plan Assessment and plan: --A. fib with low ventricular rate /bradycardia; cardiology following Possible permanent pacemaker placement tomorrow Noncompliant with anticoagulation --Acute on chronic systolic congestive heart failure Ejection fraction 35-40% continue anti-failure medications low sodium diet, input output monitoring, fluid restriction --Acute on chronic respiratory failure; symptoms significantly improved --History of lymphoma; stable --Medical non-compliance; counseling done ,patient strongly advised to adhere to the treatment plan Plan of care discussed with the patient and his nurse History Interval history: Patient seen and examined this morning medical records reviewed Patient feels better ,no new complaints Possible pacemaker placement tomorrow Hospitalist Physical - Constitutional Vitals: Temp Pulse Resp BP Pulse Ox 98.3 F 38 L 20 125/70 95 07/19/17 04:38 07/19/17 04:38 07/19/17 00:08 07/19/17 04:38 07/19/17 07:41 General appearance: Present: no acute distress, well-nourished - EENT Eyes: Present: PERRL, EOM intact - Neck Neck: Present: supple, normal ROM - Respiratory Respiratory effort: normal Respiratory: bilateral: diminished, negative: rales, rhonchi, wheezing - Cardiovascular Rhythm: regular Heart Sounds: Present: S1 & S2 - Extremities Extremities: no ischemia Extremity abnormal: edema - Abdominal General gastrointestinal: soft, non-tender, non-distended, normal bowel sounds - Integumentary Integumentary: Present: clear, warm - Psychiatric Psychiatric: appropriate mood/affect, cooperative - Neurologic Neurologic: CNII-XII intact, moves all extremities Results - Labs CBC & Chem 7: 07/15/17 15:18 07/17/17 04:32 Labs: Laboratory Last Values WBC 3.8 K/mm3 (4.5-11.0) L 07/15/17 15:18 RBC 4.58 M/mm3 (3.65-5.03) 07/15/17 15:18 Hgb 13.2 gm/dl (11.8-15.2) 07/15/17 15:18 Hct 39.9 % (35.5-45.6) 07/15/17 15:18 MCV 87 fl (84-94) 07/15/17 15:18 MCH 29 pg (28-32) 07/15/17 15:18 MCHC 33 % (32-34) 07/15/17 15:18 RDW 14.7 % (13.2-15.2) 07/15/17 15:18 Plt Count 147 K/mm3 (140-440) 07/15/17 15:18 Lymph % (Auto) 23.9 % (13.4-35.0) 07/15/17 15:18 [place] % (Auto) 7.9 % (0.0-7.3) H 07/15/17 15:18 Eos % (Auto) 6.1 % (0.0-4.3) H 07/15/17 15:18 Baso % (Auto) 0.6 % (0.0-1.8) 07/15/17 15:18 Lymph # 0.9 K/mm3 (1.2-5.4) L 07/15/17 15:18 [place] # 0.3 K/mm3 (0.0-0.8) 07/15/17 15:18 Eos # 0.2 K/mm3 (0.0-0.4) 07/15/17 15:18 Baso # 0.0 K/mm3 (0.0-0.1) 07/15/17 15:18 Seg Neutrophils % 61.5 % (40.0-70.0) 07/15/17 15:18 Seg Neutrophils # 2.3 K/mm3 (1.8-7.7) 07/15/17 15:18 D-Dimer 269.09 ng/mlDDU (0-234) H 07/15/17 18:15 Sodium 141 mmol/L (137-145) 07/17/17 04:32 Potassium 3.9 mmol/L (3.6-5.0) 07/17/17 04:32 Chloride 100.4 mmol/L (98-107) 07/17/17 04:32 Carbon Dioxide 29 mmol/L (22-30) 07/17/17 04:32 Anion Gap 16 mmol/L 07/17/17 04:32 BUN 16 mg/dL (9-20) 07/17/17 04:32 Creatinine 1.0 mg/dL (0.8-1.5) 07/17/17 04:32 Estimated GFR > 60 ml/min 07/17/17 04:32 BUN/Creatinine Ratio 16 % 07/17/17 04:32 Glucose 138 mg/dL (75-100) H 07/17/17 04:32 Calcium 8.7 mg/dL (8.4-10.2) 07/17/17 04:32 Total Bilirubin 1.30 mg/dL (0.1-1.2) H 07/15/17 15:18 AST 19 units/L (5-40) 07/15/17 15:18 ALT 12 units/L (7-56) 07/15/17 15:18 Alkaline Phosphatase 74 units/L (35-129) 07/15/17 15:18 Troponin T 0.012 ng/mL (0.00-0.029) 07/15/17 15:18 NT-Pro-B Natriuret Pep 8879 pg/mL (0-900) H 07/15/17 15:18 Total Protein 6.9 g/dL (6.3-8.2) 07/15/17 15:18 Albumin 4.1 g/dL (3.9-5) 07/15/17 15:18 Albumin/Globulin Ratio 1.5 % 07/15/17 15:18 TSH 5.110 mlU/mL (0.270-4.200) H 07/15/17 18:15 Free T4 0.78 ng/dL (0.76-1.46) 07/15/17 18:15
[2017-07-19] MEDS: COZAAR PO SCH (10:06)
[2017-07-19] MEDS: ZOVIRAX PO SCH ×2 (10:06→22:25)
[2017-07-19] MEDS: BABY ASPIRIN PO SCH (10:06)
[2017-07-19] MEDS: ZOLOFT PO SCH (10:06)
[2017-07-19] MEDS: PROTONIX PO SCH (10:07)
--- NOTE | 2017-07-19 12:00 | Progress Note ---
Assessment and Plan Assessment: Acute on chronic systolic heart failure - nearing/at euvolemia CMP - EF 45-50% Chronic atrial fibrillation with SVR - pt asympotomatic, BPs stable. HTN H/o CVA H/o lymphoma Mildly elevated TSH - free T4 WNL H/o noncompliance with systemic anticoagulation Plan: Convert IV lasix to PO, 40mg daily. Cont all other present cardiac management. For tentative PPM implantation tomorrow. Indications, potential risks and benefits reviewed with pt and he is agreeable to proceed. NPO after [place]. To initiate coumadin following PPM implantation. Assessment and plan reviewed with pt at bedside. The patient has been seen in conjunction with Dr. Lennox Hussein who agrees with the assessment and plan of care. Subjective Date of service: 07/19/17 Principal diagnosis: AFib with SVR Interval history: Pt resting comfortably in bed, no current complaints. Remains in AFib with SVR. BPs stable. Objective Last Vital Signs Temp 98.3 F 07/19/17 04:38 Pulse 38 L 07/19/17 04:38 Resp 20 07/19/17 00:08 BP 125/70 07/19/17 04:38 Pulse Ox 95 07/19/17 07:41 - Physical Examination General: No Apparent Distress HEENT: Positive: PERRL, Normocephaly, Mucus Membranes Moist Neck: Positive: neck supple, trachea midline Cardiac: Positive: irregularly irregular, S1/S2, Bradycardia Lungs: Positive: Decreased Breath Sounds Neuro: Positive: Grossly Intact Abdomen: Positive: Soft. Negative: Mass, Tender Skin: Positive: Clear. Negative: Rash, Wound Musculoskeletal: No Pain, Normal Range of Motion Extremities: Present: +1 Edema - Imaging and Cardiology EKG: report reviewed, image reviewed Echo: report reviewed ( EF 35-40%, mild LVH, RV mildly dilated, RA moderately dilated, mild MR, mild to mod TR, LA m ildly dilated, RVSP 40mmHg) - Telemetry EKG Rhythm: Atrial Fibrillation
[2017-07-19] MEDS: XANAX PO SCH (22:25)
[2017-07-20 06:05] LABS: Basophils % (Auto) 0.9 % (0.0-1.8); Eosinophils % (Auto) 9.2 % (0.0-4.3); Hematocrit 43.9 % (35.5-45.6); Hemoglobin 14.2 gm/dl (11.8-15.2); Mean Corpuscular HGB Conc 32 % (32-34); Mean Corpuscular Hemoglobin 28 pg (28-32); Mean Corpuscular Volume 86 fl (84-94); Platelet Count 176 K/mm3 (140-440); Red Blood Count 5.12 M/mm3 (3.65-5.03); Red Cell Distribution Width 14.9 % (13.2-15.2); White Blood Count 3.7 K/mm3 (4.5-11.0)
[2017-07-20 06:33] LABS: Anion Gap 17 mmol/L; BUN/Creatinine Ratio 19; Blood Urea Nitrogen 17 mg/dL (9-20); Carbon Dioxide 31 mmol/L (22-30); Chloride 98.6 mmol/L (98-107); Glucose 111 mg/dL (75-100); Potassium 4.4 mmol/L (3.6-5.0); Sodium 142 mmol/L (137-145)
[2017-07-20 08:17] LABS: INR 1.1 (0.87-1.13)
--- NOTE | 2017-07-20 08:57 | Progress Note ---
Assessment and Plan Assessment and plan: --A. fib with low ventricular rate /bradycardia; cardiology following Possible permanent pacemaker placement today Cardiology following --Acute on chronic systolic congestive heart failure Ejection fraction 35-40% continue anti-failure medications low sodium diet, input output monitoring, fluid restriction --Acute on chronic respiratory failure; symptoms significantly improved --History of lymphoma; stable --Medical non-compliance; counseling done ,patient strongly advised to adhere to the treatment plan Possibly discharge home in 1-2 days if stable History Interval history: Recent seen and evaluated this morning Scheduled for pacemaker placement No new complaints Vital signs reviewed Hospitalist Physical - Constitutional Vitals: Temp Pulse Resp BP Pulse Ox 98.0 F 41 L 18 127/63 96 07/20/17 05:15 07/20/17 05:15 07/20/17 05:15 07/20/17 05:15 07/20/17 05:15 General appearance: Present: no acute distress, well-nourished - EENT Eyes: Present: PERRL, EOM intact - Neck Neck: Present: supple, normal ROM - Respiratory Respiratory effort: normal Respiratory: bilateral: diminished, negative: rales, rhonchi, wheezing - Cardiovascular Rhythm: regular Heart Sounds: Present: S1 & S2 - Extremities Extremities: no ischemia, No edema - Abdominal General gastrointestinal: soft, non-tender, non-distended, normal bowel sounds - Integumentary Integumentary: Present: clear, warm - Psychiatric Psychiatric: appropriate mood/affect, cooperative - Neurologic Neurologic: CNII-XII intact, moves all extremities Results - Labs CBC & Chem 7: 07/20/17 05:10 07/20/17 05:10 Labs: Laboratory Last Values WBC 3.7 K/mm3 (4.5-11.0) L 07/20/17 05:10 RBC 5.12 M/mm3 (3.65-5.03) H 07/20/17 05:10 Hgb 14.2 gm/dl (11.8-15.2) 07/20/17 05:10 Hct 43.9 % (35.5-45.6) 07/20/17 05:10 MCV 86 fl (84-94) 07/20/17 05:10 MCH 28 pg (28-32) 07/20/17 05:10 MCHC 32 % (32-34) 07/20/17 05:10 RDW 14.9 % (13.2-15.2) 07/20/17 05:10 Plt Count 176 K/mm3 (140-440) 07/20/17 05:10 Lymph % (Auto) 36.5 % (13.4-35.0) H 07/20/17 05:10 [place] % (Auto) 8.2 % (0.0-7.3) H 07/20/17 05:10 Eos % (Auto) 9.2 % (0.0-4.3) H 07/20/17 05:10 Baso % (Auto) 0.9 % (0.0-1.8) 07/20/17 05:10 Lymph # 1.4 K/mm3 (1.2-5.4) 07/20/17 05:10 [place] # 0.3 K/mm3 (0.0-0.8) 07/20/17 05:10 Eos # 0.3 K/mm3 (0.0-0.4) 07/20/17 05:10 Baso # 0.0 K/mm3 (0.0-0.1) 07/20/17 05:10 Seg Neutrophils % 45.2 % (40.0-70.0) 07/20/17 05:10 Seg Neutrophils # 1.7 K/mm3 (1.8-7.7) L 07/20/17 05:10 PT 14.8 Sec. (12.2-14.9) 07/20/17 05:10 INR 1.10 (0.87-1.13) 07/20/17 05:10 D-Dimer 269.09 ng/mlDDU (0-234) H 07/15/17 18:15 Sodium 142 mmol/L (137-145) 07/20/17 05:10 Potassium 4.4 mmol/L (3.6-5.0) 07/20/17 05:10 Chloride 98.6 mmol/L (98-107) 07/20/17 05:10 Carbon Dioxide 31 mmol/L (22-30) H 07/20/17 05:10 Anion Gap 17 mmol/L 07/20/17 05:10 BUN 17 mg/dL (9-20) 07/20/17 05:10 Creatinine 0.9 mg/dL (0.8-1.5) 07/20/17 05:10 Estimated GFR > 60 ml/min 07/20/17 05:10 BUN/Creatinine Ratio 19 % 07/20/17 05:10 Glucose 111 mg/dL (75-100) H 07/20/17 05:10 Calcium 9.0 mg/dL (8.4-10.2) 07/20/17 05:10 Total Bilirubin 1.30 mg/dL (0.1-1.2) H 07/15/17 15:18 AST 19 units/L (5-40) 07/15/17 15:18 ALT 12 units/L (7-56) 07/15/17 15:18 Alkaline Phosphatase 74 units/L (35-129) 07/15/17 15:18 Troponin T 0.012 ng/mL (0.00-0.029) 07/15/17 15:18 NT-Pro-B Natriuret Pep 8879 pg/mL (0-900) H 07/15/17 15:18 Total Protein 6.9 g/dL (6.3-8.2) 07/15/17 15:18 Albumin 4.1 g/dL (3.9-5) 07/15/17 15:18 Albumin/Globulin Ratio 1.5 % 07/15/17 15:18 TSH 5.110 mlU/mL (0.270-4.200) H 07/15/17 18:15 Free T4 0.78 ng/dL (0.76-1.46) 07/15/17 18:15
[2017-07-20] MEDS: LASIX PO SCH (10:00)
[2017-07-20] MEDS: COZAAR PO SCH (10:00)
[2017-07-20] MEDS: ZOVIRAX PO SCH ×2 (10:00→20:59)
--- NOTE | 2017-07-20 10:18 | Progress Note ---
Assessment and Plan Assessment: Acute on chronic systolic heart failure - nearing/at euvolemia CMP - EF 45-50% Chronic atrial fibrillation with SVR - pt asympotomatic, BPs stable. HTN H/o CVA H/o lymphoma Mildly elevated TSH - free T4 WNL H/o noncompliance with systemic anticoagulation Plan: For PPM implantation today. To initiate coumadin following PPM implantation. Assessment and plan reviewed with pt at bedside. The patient has been seen in conjunction with Dr. Lennox Hussein who agrees with the assessment and plan of care. Subjective Date of service: 07/20/17 Principal diagnosis: AFib with SVR Interval history: Pt resting comfortably in bed, no current complaints. Remains in AFib with SVR. BPs stable. Awaiting PPM implantation today. Has been NPO since MN. Objective Last Vital Signs Temp 98.0 F 07/20/17 05:15 Pulse 41 L 07/20/17 05:15 Resp 18 07/20/17 05:15 BP 127/63 07/20/17 05:15 Pulse Ox 96 07/20/17 05:15 - Physical Examination General: No Apparent Distress HEENT: Positive: PERRL, Normocephaly, Mucus Membranes Moist Neck: Positive: neck supple, trachea midline Cardiac: Positive: irregularly irregular, S1/S2, Bradycardia Lungs: Positive: Decreased Breath Sounds Neuro: Positive: Grossly Intact Abdomen: Positive: Soft. Negative: Mass, Tender Skin: Positive: Clear. Negative: Rash, Wound Musculoskeletal: No Pain, Normal Range of Motion Extremities: Present: +1 Edema - Labs and Meds Coagulation 07/20/17 Range/Units 05:10 PT 14.8 (12.2-14.9) Sec. INR 1.10 (0.87-1.13) CBC 07/20/17 Range/Units 05:10 WBC 3.7 L (4.5-11.0) K/mm3 RBC 5.12 H (3.65-5.03) M/mm3 Hgb 14.2 (11.8-15.2) gm/dl Hct 43.9 (35.5-45.6) % Plt Count 176 (140-440) K/mm3 Lymph # 1.4 (1.2-5.4) K/mm3 [place] # 0.3 (0.0-0.8) K/mm3 Eos # 0.3 (0.0-0.4) K/mm3 Baso # 0.0 (0.0-0.1) K/mm3 Comprehensive Metabolic Panel 07/20/17 Range/Units 05:10 Sodium 142 (137-145) mmol/L Potassium 4.4 (3.6-5.0) mmol/L Chloride 98.6 (98-107) mmol/L Carbon Dioxide 31 H (22-30) mmol/L BUN 17 (9-20) mg/dL Creatinine 0.9 (0.8-1.5) mg/dL Glucose 111 H (75-100) mg/dL Calcium 9.0 (8.4-10.2) mg/dL - Imaging and Cardiology EKG: report reviewed, image reviewed Echo: report reviewed ( EF 35-40%, mild LVH, RV mildly dilated, RA moderately dilated, mild MR, mild to mod TR, LA m ildly dilated, RVSP 40mmHg)
[2017-07-20] MEDS ORDERED: NACL 0.9% 500 ML IR ONE (12:54)
[2017-07-20] MEDS ORDERED: XYLOCAINE 1% 20 mL ONE (12:54)
[2017-07-20] MEDS ORDERED: NACL 0.45% 1000 ML 1,000 ML IV SCH (13:00)
[2017-07-20] MEDS ORDERED: NACL 0.9% 1,000 ML, VANCOMYCIN VIAL 1,000 MG IR ONE (13:28)
[2017-07-20] MEDS: VERSED IV ONE ×2 (14:30→14:50)
[2017-07-20] MEDS: SUBLIMAZE ONE ×3 (14:30→15:25)
[2017-07-20] MEDS: MARCAINE 0.5% 60 ML INFILTRATI ONE ×2 (14:33→15:04)
[2017-07-20] MEDS: ANCEF/STERILE WATER 2 GM/20 ML 2 GM/20 ML SYRINGE IV ONE ×2 (14:35→15:04)
[2017-07-20] MEDS ORDERED: ANCEF/NS 1 GM/50 ML 1 GM/50 ML BAG IV SCH (17:00)
[2017-07-20] MEDS: PROTONIX PO SCH (17:52)
[2017-07-20] MEDS: ZOLOFT PO SCH (17:52)
[2017-07-20] MEDS: BABY ASPIRIN PO SCH (17:54)
[2017-07-20] MEDS: TYLENOL PO PRN (20:57)
[2017-07-20] MEDS: ceFAZolin 1 GM in NACL 0.9% 20 ML IV SCH (20:59)
[2017-07-20] MEDS: XANAX PO SCH (20:59)
--- NOTE | 2017-07-20 22:16 | XRay Report ---
FINAL REPORT EXAM: XR CHEST 1V AP HISTORY: Pacemaker Postop TECHNIQUE: AP frontal chest x-ray Comparison: 07/15/2017 FINDINGS: There is cardiomegaly. Lung volumes are low. There is been interval placement of a unipolar pacer. There is no pneumothorax identified. Lungs are well aerated. There is a right skin fold simulating an apical lateral pneumothorax. IMPRESSION: Unipolar transvenous pacer placed. No acute cardiopulmonary disease.
[2017-07-21 05:08] VITALS: BP 114/74
[2017-07-21] MEDS: ceFAZolin 1 GM in NACL 0.9% 20 ML IV SCH (06:06)
[2017-07-21 06:19] LABS: Basophils % (Auto) 0.6 % (0.0-1.8); Hematocrit 41.7 % (35.5-45.6); Hemoglobin 13.6 gm/dl (11.8-15.2); Mean Corpuscular HGB Conc 33 % (32-34); Mean Corpuscular Hemoglobin 28 pg (28-32); Mean Corpuscular Volume 86 fl (84-94); Platelet Count 143 K/mm3 (140-440); Red Blood Count 4.87 M/mm3 (3.65-5.03); Red Cell Distribution Width 14.6 % (13.2-15.2); White Blood Count 4.7 K/mm3 (4.5-11.0)
[2017-07-21 06:39] LABS: BUN/Creatinine Ratio 21; Blood Urea Nitrogen 17 mg/dL (9-20); Calcium 8.8 mg/dL (8.4-10.2); Carbon Dioxide 27 mmol/L (22-30); Glucose 118 mg/dL (75-100); Sodium 134 mmol/L (137-145)
[2017-07-21 06:40] LABS: Anion Gap 16 mmol/L; Chloride 96.1 mmol/L (98-107); Potassium 4.7 mmol/L (3.6-5.0)
[2017-07-21] MEDS: TYLENOL PO PRN ×2 (08:57→16:42)
--- NOTE | 2017-07-21 09:57 | Progress Note ---
Assessment and Plan Assessment: Acute on chronic systolic heart failure - nearing/at euvolemia PPM in situ Chronic atrial fibrillation with SVR HTN H/o CVA H/o lymphoma H/o noncompliance with systemic anticoagulation Plan: s/p PPM implantation yesterday. Post-procedure CXR revealed NAF, no pneumothorax. Device interrogation this AM showed normal device function. Left pectoralis PPM site pressure dressing removed, site c/d/i with small amount of old blood on bandage noted, no evidence of current bleeding or hematoma. Initiate coumadin, 5mg daily. Currently stable cardiac status. Pt may discharge home from cardiology standpoint. Follow up in our [place] office for device clinic on 08/04/2017 @ 8:00AM. Follow up in our [place] office for INR check on 07/28/2017 @ 9:45AM. Follow up in our [place] office with Dr. LOUIS Hussein on 07/29/2017 @ 2:30PM. The patient has been seen in conjunction with Dr. Lennox Hussein who agrees with the assessment and plan of care. Subjective Date of service: 07/21/17 Principal diagnosis: AFib with SVR Interval history: Pt resting comfortably in bed, no current complaints. s/p PPM yesterday. Paced on telemetry. c/o left pectoralis PPM implantation site soreness. Objective Last Vital Signs Temp 98.7 F 07/21/17 05:04 Pulse 50 L 07/21/17 05:04 Resp 20 07/21/17 05:04 BP 114/74 07/21/17 05:04 Pulse Ox 95 07/21/17 05:04 - Physical Examination General: No Apparent Distress HEENT: Positive: PERRL, Normocephaly, Mucus Membranes Moist Neck: Positive: neck supple, trachea midline Cardiac: Positive: Reg Rate and Rhythm, S1/S2 Lungs: Positive: clear to auscultation Neuro: Positive: Grossly Intact Abdomen: Positive: Soft. Negative: Mass, Tender Skin: Positive: Clear. Negative: Rash, Wound Musculoskeletal: No Pain, Normal Range of Motion Extremities: Present: +1 Edema - Labs and Meds CBC 07/21/17 Range/Units 05:07 WBC 4.7 (4.5-11.0) K/mm3 RBC 4.87 (3.65-5.03) M/mm3 Hgb 13.6 (11.8-15.2) gm/dl Hct 41.7 (35.5-45.6) % Plt Count 143 (140-440) K/mm3 Lymph # 0.5 L (1.2-5.4) K/mm3 [place] # 0.3 (0.0-0.8) K/mm3 Eos # 0.2 (0.0-0.4) K/mm3 Baso # 0.0 (0.0-0.1) K/mm3 Comprehensive Metabolic Panel 07/21/17 Range/Units 05:07 Sodium 134 L D (137-145) mmol/L Potassium 4.7 (3.6-5.0) mmol/L Chloride 96.1 L (98-107) mmol/L Carbon Dioxide 27 (22-30) mmol/L BUN 17 (9-20) mg/dL Creatinine 0.8 (0.8-1.5) mg/dL Glucose 118 H (75-100) mg/dL Calcium 8.8 (8.4-10.2) mg/dL - Imaging and Cardiology EKG: report reviewed, image reviewed Echo: report reviewed ( EF 35-40%, mild LVH, RV mildly dilated, RA moderately dilated, mild MR, mild to mod TR, LA m ildly dilated, RVSP 40mmHg)
[2017-07-21] MEDS: PROTONIX PO SCH (10:03)
[2017-07-21] MEDS: ZOLOFT PO SCH (10:03)
[2017-07-21] MEDS: ZOVIRAX PO SCH (10:03)
[2017-07-21] MEDS: BABY ASPIRIN PO SCH (10:04)
[2017-07-21] MEDS: COZAAR PO SCH (10:04)
[2017-07-21] MEDS: LASIX PO SCH (10:04)
--- NOTE | 2017-07-21 10:04 | Discharge Summary ---
Providers - Providers Date of Admission: 07/15/17 18:09 Attending physician: LISA SAL 07/16/17 09:04 Consult to Physician [CONS] Routine Consulting Provider: JOSHUA BARRERA Reason For Exam: Symptomatic bradycardia Place consult to:: [facility] Notified:: y Comment:: added to list 07/20/17 16:37 Consult to Cardiac Rehabilitation [CONS] Routine Reason For Exam: Cardiac Rehab Evaluation Primary care physician: SEAN MARTELL Hospitalization Reason for admission: worsening shortness of breath/generalized weakness/ bradycardia Condition: Stable Pertinent studies: Lower extremity venous Doppler; negative DVT Echo ; EF 45-50% Procedures: Permanent pacemaker placement Hospital course: Very pleasant 72-year-old male patient with significant past medical history of chronic A. fib with slow ventricular rate noncompliance with chronic anticoagulation cardiomyopathy and chronic systolic congestive heart failure CVA hypertension was admitted through emergency room with worsening shortness of breath and generalized weakness Patient was evaluated noted to be bradycardic admitted to the hospital symptomatically managed Subsequently evaluated by torch shearer, underwent permanent pacemaker, Patient tolerated the procedure well Today Patient is comfortably in bed no new complaints, Vital signs stable Counseling done patient strongly advised to comply with medications, diet and follow-up visits Cardiology is assumed Coumadin, with instructions for frequent monitoring of INRs Time of discharge patient is hemodynamically and clinically stable Discharge diagnosis; --A. fib with low ventricular rate /bradycardia; --s/p permanent pacemaker placement --Acute on chronic systolic congestive heart failure --Acute on chronic respiratory failure; symptoms significantly improved --History of lymphoma; stable --Medical non-compliance; counseling done, Disposition: DC-01 TO HOME OR SELFCARE Time spent for discharge: 32 min Core Measure Documentation - Palliative Care Palliative Care/ Comfort Measures: Not Applicable - Core Measures Any of the following diagnoses?: heart failure, none - Heart Failure Discharge Requirements TAMIR/ARB for LVSD if EF <40%: Yes Beta nilson at discharge: No Reason for no beta nilson on DC: Bradycardia Exam - Constitutional Vitals: Temp Pulse Resp BP Pulse Ox 98.7 F 50 L 20 114/74 95 07/21/17 05:04 07/21/17 05:04 07/21/17 05:04 07/21/17 05:04 07/21/17 05:04 General appearance: Present: no acute distress, well-nourished - EENT Eyes: Present: PERRL, EOM intact - Neck Neck: Present: supple, normal ROM - Respiratory Respiratory effort: normal Respiratory: bilateral: diminished, negative: rales, rhonchi, wheezing - Cardiovascular Rhythm: regular Heart Sounds: Present: S1 & S2 - Extremities Extremities: no ischemia, No edema Peripheral Pulses: within normal limits - Abdominal General gastrointestinal: Present: soft, non-tender, non-distended - Integumentary Integumentary: Present: clear, warm - Musculoskeletal Musculoskeletal: strength equal bilaterally - Psychiatric Psychiatric: appropriate mood/affect, cooperative - Neurologic Neurologic: CNII-XII intact, moves all extremities Plan Activity: advance as tolerated, fall precautions Diet: low salt, other (cardiac diet as tolerated) Additional Instructions: Follow up in [facility] office for device clinic on 08/04/2017 @ 8:00AM. Follow up in [facility] office for INR check on 07/28/2017 @ 9:45AM. Follow up in [facility] office with Dr. LOUIS Hussein on 07/29/2017 @ 2:30PM. Patient strongly advised to comply with medications, diet and follow-up visits Follow up with: SEAN MARTELL MD [Primary Care Provider] - 3-5 Days Prescriptions: HYDROcodone/APAP 5-325 [[place] 5/325] 1 each PO Q12H PRN #10 tablet PRN Reason: Pain Warfarin [Coumadin] 5 mg PO DAILY@1700 #30 tablet
[2017-07-21] MEDS ORDERED: COUMADIN PO ONE (12:00)
[2017-07-22] MEDS ORDERED: COUMADIN PO SCH (17:00)
== END 2017-07-21 16:55 | disposition home or self-care (01) | DRG 242 ==
LOC: ED 14:08 → 4A 18:09
PROVIDERS: ADMIT Internal Medicine; ATTEND Internal Medicine
PROC: 3E0234Z Introduction of Serum, Toxoid and Vaccine into Muscle, Percutaneous Approach (ICD-10-PCS; 2017-07-17)
PROC: 0JH604Z Insertion of Pacemaker, Single Chamber into Chest Subcutaneous Tissue and Fascia, Open Approach (ICD-10-PCS; principal; 2017-07-21)
PROC: 02HK3JZ Insertion of Pacemaker Lead into Right Ventricle, Percutaneous Approach (ICD-10-PCS; 2017-07-21)
DX: I48.91 Unspecified atrial fibrillation (principal); J96.21 Acute and chronic respiratory failure with hypoxia; I50.23 Acute on chronic systolic (congestive) heart failure; I11.0 Hypertensive heart disease with heart failure; Z23 Encounter for immunization; K21.9 Gastro-esophageal reflux disease without esophagitis; J45.909 Unspecified asthma, uncomplicated; Z87.891 Personal history of nicotine dependence; Z79.82 Long term (current) use of aspirin; Z82.49 Family history of ischemic heart disease and other diseases of the circulatory system; R00.1 Bradycardia, unspecified; Z91.19 Patient's noncompliance with other medical treatment and regimen; I42.9 Cardiomyopathy, unspecified; Z86.73 Personal history of transient ischemic attack (TIA), and cerebral infarction without residual deficits
CPT/HCPCS: 33207; 36415; 71010; 80048; 80053; 83880; 84439; 84443; 84484; 85025; 85379; 85610; 90686; 90732; 93005; 93010; 93306; 93970; 96374; A9270-GY; C1769; C1779; C1786; C1892; J0690; J1940; J2250; J3010; J3370; Q9967